=== PATIENT | female | born 1995 | race Caucasian/White ===

== ENCOUNTER 2020-08-20 08:00 | Outpatient (CLI) | payer OTHER | END 2020-08-20 23:59 | disposition home or self-care (01) | LOC: LAB.WC 08:00 | PROVIDERS: ATTEND Advanced Practice Midwife | DX: Z34.90 Encounter for supervision of normal pregnancy, unspecified, unspecified trimester (principal); Z36.85 Encounter for antenatal screening for Streptococcus B | CPT/HCPCS: 87797 ==

== ENCOUNTER 2020-08-22 16:36 | Outpatient (CLI) | payer OTHER ==
[2020-08-22] MEDS ORDERED: SODIUM CHLORIDE FLUSH 0.9% 10 ML SYRINGE IVP PRN (17:11)
[2020-08-22] MEDS ORDERED: LACTATED RINGERS 1,000 ML IV ONE (17:15)
[2020-08-22] MEDS ORDERED: LACTATED RINGERS 500 ML IV ONE ×2 (17:18→17:59)
[2020-08-22 17:38] LABS: HCT - HEMATOCRIT 31.2 % (37.0-47.0); HGB - HEMOGLOBIN 10.3 g/dL (12.0-16.0); MEAN CORPUSCULAR VOLUME 87.4 fL (81.0-99.0); RED BLOOD COUNT 3.57 10^6/uL (4.20-5.40); WHITE BLOOD COUNT 9.7 x10^3/uL (4.8-10.8)
[2020-08-22 17:39] LABS: BASOPHILS % (AUTO) 0.2 %; EOSINOPHILS # (AUTO) 0.1 10^3/uL (0.0-0.7); EOSINOPHILS % (AUTO) 0.5 %; LYMPHOCYTES % (AUTO) 20.9 %; MEAN CORPUSCULAR HEMOGLOBIN 28.9 pg (27.0-31.0); MEAN PLATELET VOLUME 9.7 fL (7.9-10.8); MONOCYTES # (AUTO) 0.8 10^3/uL (0.0-1.0); MONOCYTES % (AUTO) 8.4 %; NEUTROPHILS # (AUTO) 6.7 10^3/uL (1.5-6.6); NEUTROPHILS % (AUTO) 69.3 %; PLT - PLATELET COUNT 283 10^3/uL (130-450)
[2020-08-22 17:48] LABS: URIC ACID 3.2 mg/dL (2.6-7.2)
[2020-08-22 18:16] LABS: MUDS CUTOFF CONCENTRATIONS CUTOFF CONC BELOW:
[2020-08-22 18:17] LABS: CREATININE,URINE 50.4 mg/dL; PROTEIN/CREATININE RATIO,URINE 0.4 (<=0.2)
[2020-08-22 18:36] LABS: AMPHETAMINE SCREEN,URINE NEGATIVE (NEGATIVE); BARBITURATE SCREEN,UR NEGATIVE (NEGATIVE); BENZODIAZEPINES SCREEN, URINE NEGATIVE (NEGATIVE); COCAINE SCREEN URINE NEGATIVE (NEGATIVE); METHADONE SCREEN, URINE NEGATIVE (NEGATIVE); METHAMPHETAMINES SCREEN, URINE NEGATIVE (NEGATIVE); OPIATE SCREEN, URINE NEGATIVE (NEGATIVE); OXYCODONE SCREEN, URINE NEGATIVE (NEGATIVE); PROPOXYPHENE SCREEN, URINE NEGATIVE (NEGATIVE); THC CANNABINOID SCREEN, URINE NEGATIVE (NEGATIVE); TRICYCLIC ANTIDEPRESSANT,URINE NEGATIVE (NEGATIVE)
[2020-08-22 18:41] VITALS: BP 128/86
--- NOTE | 2020-08-22 18:49 | PROVIDER PROGRESS NOTE ---
- HPI Chief Complaint: Labor Check Current : Current EDU 09/17/20 Gestation 36 Weeks and 2 Days 2 Para 1 - Procedures OB Procedure Performed: NST Diagnosis/Indication for NST: Other Service Date of procedure: 08/22/20 - Plan Plan: S: Adri esparza a 25yo @ 36.2wks gestation by LMP c/w 12.2wks U/S who presents to [facility] with c/o her "heart feeling funny". She denies chest pain. She states she was just laying in bed watching TV and felt like she had just gone for a jog. She denies vaginal bleeding or leakage of fluid. She reports +FM. She reports occasional episodes of abdominal tightening and reports 3 in the last hour. She denies feeling significant pain associated with the contractions. She reports regular bowel movements. She denies smoking. She denies drug use including marijuana use. She states she has not had very much water to drink today and she does not usually drink much water. She has had one large coffee and 2 caffeinated sodas and no water. She states otherwise she is feeling well and denies fever, chills, fatigue, or malaise. She denies VENTURA, visual disturbances, RUQ or epigastric pain. She presents with her Dorian. O: Heart RRR w/o M/G/R, lungs CTAB, abdomen gravid, soft and nontender, bilateral LEs no edema. Moderate edema to hands bilaterally. EKG - tachycardia, otherwise WNL SVE 1/50/-3, posterior. Vertex. Initial BP 150s/80s Repeat BP 130/80; 120/80 Maternal tachycardia 150s NST performed 08/22/2020 NST read 08/22/2020 NST reactive: FHR baseline 150, moderate variability, + accels, no decels Occasional contraction appreciated via tocometry PI labs WNL UTOX consent for signed - pending 1L LR bolused. Pt feels significantly improved following fluid administration and heart decreased to 115. A: 25yo @ 36.2wks gestation by LMP c/w 12.2wk U/S Dehydration P: Strongly advised limiting caffeine intake to 1 8oz cup of coffee or soda per day. Encouraged increased fluid intake and encouraged her to drink 100oz of fluid per day. Reviewed warning s/sx and when to present. Has emergency contact information. F/u next week on Thursday in the office for routine visit or sooner PRN. Pt and partner at the bedside both verbalized understanding and agree to above plan. They deny further questions or concerns at this time. FINAL DIAGNOSIS: Maternal dehydration
== END 2020-08-22 18:58 | disposition home or self-care (01) ==
LOC: WFO 16:36 → FBP 16:38 → WFO 18:58
PROVIDERS: ATTEND Nurse Practitioner Obstetrics & Gynecology
DX: O99.283 Endocrine, nutritional and metabolic diseases complicating pregnancy, third trimester (principal); E86.0 Dehydration; Z3A.36 36 weeks gestation of pregnancy
CPT/HCPCS: 36415; 59025; 80306; 82570; 83615; 84156; 84450; 84550; 85025; 93005; 99214; J7120

== ENCOUNTER 2020-09-05 08:00 | Outpatient (CLI) | payer OTHER ==
[2020-09-05 23:39] LABS: BACTERIAL VAGINOSIS DNA NEGATIVE (NEGATIVE); CANDIDA GLABRATA DNA NEGATIVE (NEGATIVE); CANDIDA GROUP DNA NEGATIVE (NEGATIVE); CANDIDA KRUSEI DNA NEGATIVE (NEGATIVE); TRICHOMONAS VAGINALIS DNA NEGATIVE (NEGATIVE)
== END 2020-09-05 23:59 | disposition home or self-care (01) ==
LOC: LAB.WC 08:00
PROVIDERS: ATTEND Nurse Practitioner Obstetrics & Gynecology
DX: N89.8 Other specified noninflammatory disorders of vagina (principal)
CPT/HCPCS: 87661; 87801

== ENCOUNTER 2020-09-12 16:23 | Outpatient (CLI) | payer OTHER ==
[2020-09-12 17:22] VITALS: BP 127/90
[2020-09-12 17:23] LABS: RUPTURE OF MEMBRANES PLUS NEGATIVE (NEGATIVE)
--- NOTE | 2020-09-12 19:43 | PROVIDER PROGRESS NOTE ---
- HPI Chief Complaint: Leakage of vaginal fluid Current : Current EDU 09/17/20 Gestation 39 Weeks and 2 Days Vital Signs Temperature 37.2 C 09/12/20 17:10 Heart Rate 113 H 09/12/20 17:10 Respiratory Rate 18 09/12/20 17:10 Blood Pressure 127/90 H 09/12/20 17:10 Temperature 37.2 C 09/12/20 17:10 Heart Rate 113 H 09/12/20 17:10 Respiratory Rate 18 09/12/20 17:10 Blood Pressure 127/90 H 09/12/20 17:10 O2 Saturation - Procedures OB Procedure Performed: NST NST Procedure: NST Procedure Start Time 17:00 Stop Time 17:20 Service Date of procedure: 09/12/20 - Plan Plan: Adri presents today to [facility] with complaints of vaginal leakage of clear fluid x once a couple of hours ago. She denies consistent contractions and reports her contractions continue to feel mild and sporadic as they have for the past couple of weeks. She denies vaginal bleeding and she reports +FM. NST performed 09/12/2020 NST read 09/12/2020 NST reactive. FHR baseline 140s, moderate variability, + accels, no decels Contractions palpate mild intermittently. SVE closed/thick/high No evidence of gross rupture noted. ROM plus collected - NEGATIVE Assessment: 25yo @ 39.2wks gestation vaginal leakage of fluid Plan: Pt reassured with a negative ROM plus and no evidence of labor. Pt released home with precautions. She has emergency contact number. She verbalized understanding and agrees to above plan. She denies further questions or concerns at this time. FINAL DIAGNOSIS: Vaginal leakage of fluid - r/o rupture of membranes
== END 2020-09-12 17:45 | disposition home or self-care (01) ==
LOC: WFO 16:23 → FBP 16:27 → WFO 17:45
PROVIDERS: ATTEND Nurse Practitioner Obstetrics & Gynecology
DX: O99.891 Other specified diseases and conditions complicating pregnancy (principal); N89.8 Other specified noninflammatory disorders of vagina; Z3A.39 39 weeks gestation of pregnancy
CPT/HCPCS: 59025; 84112; 99213

== ENCOUNTER 2020-09-15 20:10 | Outpatient (CLI) | payer OTHER ==
[2020-09-15 21:53] VITALS: BP 130/79
--- NOTE | 2020-09-16 09:33 | PROVIDER PROGRESS NOTE ---
- HPI Chief Complaint: Labor Check Current : Current EDU 09/17/20 Gestation 39 Weeks and 5 Days 2 Para 1 Vital Signs Temperature 36.9 C 09/15/20 20:24 Heart Rate 118 H 09/15/20 20:24 Respiratory Rate 18 09/15/20 20:24 Blood Pressure 121/73 09/15/20 20:24 O2 Saturation 98 09/15/20 20:24 Temperature 36.9 C 09/15/20 21:52 Heart Rate 106 H 09/15/20 21:52 Respiratory Rate 20 09/15/20 21:52 Blood Pressure 130/79 09/15/20 21:52 O2 Saturation 99 09/15/20 21:52 - Procedures OB Procedure Performed: NST NST Procedure: NST Procedure Start Date 09/15/20 Start Time 20:22 Stop Time 20:58 Vibroacoustic Stimulation Used No Patient States Movement Yes - Plan Plan: S: Adri presents to [facility] with c/o contractions through the evening. She states they were every 3-5 minutes but she was only rating them 3/10 pain. She denies vaginal bleeding or leakage of fluid and reports +FM. She states she is very tired of being and requests induction of labor as soon as possible. She has a hx of a precipitous delivery so she is nervous about contin uing to stay and not knowing when to present. O:Vital signs WNL. NST [id number] 09/15/2020 NST read 09/16/2020 NST reactive. FHR baseline 140s, moderate variability, + accels, no decels Contractions palpate mild occasionally every 6-10 minutes lasting 30-45 seconds with soft resting tone. SVE closed/50/-3, posterior. Vertex. A: 25yo @ 39.5wks gestation False labor >37wks gestation P: Pt released home with precautions. Encouraged pt to return for elective induction on -09/17/2020 @ 0800 with the understanding that her induction of labor is elective and may be rescheduled due to staffing concerns. Pt verbalized understanding and agrees to above plan. She denies further questions or concerns at this time. FINAL DIAGNOSIS: False labor >37wks gestation
== END 2020-09-15 22:00 | disposition home or self-care (01) ==
LOC: WFO 20:10 → FBP 20:11 → WFO 22:00
PROVIDERS: ATTEND Nurse Practitioner Obstetrics & Gynecology
DX: O47.1 False labor at or after 37 completed weeks of gestation (principal); Z3A.39 39 weeks gestation of pregnancy
CPT/HCPCS: 59025; 99213

== ENCOUNTER 2020-09-17 07:57 | Inpatient (IN) | payer OTHER ==
[2020-09-17] MEDS ORDERED: OXYTOCIN/SODIUM CHLORIDE 500 ML IV PRN (09:01)
[2020-09-17] MEDS ORDERED: SODIUM CHLORIDE FLUSH 0.9% 10 ML SYRINGE IVP PRN (09:01)
[2020-09-17] MEDS ORDERED: CARBOPROST TROMETHAMINE 250 MCG/ML AMP IM PRN (09:01)
[2020-09-17] MEDS ORDERED: miSOPROStoL 200 MCG TABLET BC PRN (09:01)
[2020-09-17] MEDS ORDERED: LIDOCAINE-MPF 1% 30 ML VIAL ID PRN (09:01)
[2020-09-17] MEDS ORDERED: OXYTOCIN 10 UNIT/ML VIAL IM PRN (09:01)
[2020-09-17] MEDS ORDERED: TRANEXAMIC ACID IN NACL 1,000 MG/100 ML BAG IV PRN (09:01)
[2020-09-17] MEDS ORDERED: METHYLERGONOVINE 0.2 MG/ML VIAL IM PRN (09:01)
[2020-09-17 09:09] LABS: BASOPHILS % (AUTO) 0.3 %; EOSINOPHILS % (AUTO) 0.4 %; HCT - HEMATOCRIT 32.2 % (37.0-47.0); HGB - HEMOGLOBIN 10.3 g/dL (12.0-16.0); LYMPHOCYTES # (AUTO) 2.1 10^3/uL (1.5-3.5); LYMPHOCYTES % (AUTO) 23.5 %; MEAN CORPUSCULAR HEMOGLOBIN 28.5 pg (27.0-31.0); MEAN PLATELET VOLUME 10.3 fL (7.9-10.8); MONOCYTES # (AUTO) 0.8 10^3/uL (0.0-1.0); MONOCYTES % (AUTO) 8.4 %; NEUTROPHILS # (AUTO) 6.1 10^3/uL (1.5-6.6); NEUTROPHILS % (AUTO) 66.9 %; PLT - PLATELET COUNT 312 10^3/uL (130-450); RED BLOOD COUNT 3.62 10^6/uL (4.20-5.40); WHITE BLOOD COUNT 9.1 x10^3/uL (4.8-10.8)
[2020-09-17] MEDS: miSOPROStoL 100 MCG TABLET BC SCH ×2 (09:22→14:34)
--- NOTE | 2020-09-17 09:39 | HISTORY & PHYSICAL EXAMINATION ---
Admit History - Visit Reason Visit Reason: Other - : 2 Parity: 1 Premature: 0 Ectopic: 0 : 0 Care: positive: [facility] Risk/History: positive: None Complications This : positive: None - Mother's Labs Mother's Blood Type: positive: O Mother's RH: positive: Negative GBS: positive: Group B Step Negative Rubella Status: positive: Immune Meds/Allgy - Home Medications Home Medications: Ambulatory Orders Medication Instructions Recorded Confirmed Vit,Sixto 74/Iron/Folic 1 each PO DAILY 09/15/20 09/15/20 [ Low Iron Tablet] - Allergies Allergies/Adverse Reactions: Allergies Allergy/AdvReac Type Severity Reaction Status Date / Time No Known Drug Allergies Allergy Verified 09/15/20 20:54 Review of Systems - Constitutional Constitutional: denies: Fatigue, Fever, Chills, Malaise - Eyes Eyes: denies: Blurred vision, Spots in vision, Dipolpia - Cardiovascular Cariovascular: denies: Irregular heart rate, Palpitations, Chest pain, Edema - Respiratory Respiratory: denies: Cough, SOB at rest - Gastrointestinal Gastrointestinal: denies: Constipation, Diarrhea, Change in bowel habits - Integumentary Integumentary: denies: Rash, Pruritis - Neurological Neurological: denies: Headache Physical - Abdominal Exam Contraction Frequency (min/apart): 2-6 Contraction Intensity: positive: Mild Uterine Resting Tone: positive: Soft - Monitoring Heart Rate Baseline: 150 Strip Review: positive: Category I - Presentation Presentation: positive: Vertex - Vaginal Exam Membranes: positive: Membranes intact Dilation (in cm): 1 Effacement (%): 20 Station: positive: -3 Cervical Position: positive: Posterior - Speculum Exam Speculum Exam Performed: positive: No Plan for Labor - Plan For Labor I expect patient to be DC'd or transferred within 96 hours.: Yes Plan for Labor: HPI: Adri is a 25yo @ 40.0wks gestation by LMP c/w 12.2wk U/S who presents to [facility] for elective induction of labor. She denies vaginal bleeding or leakage of fluid. She reports occasional contractions which she states are mostly just uncomfortable rather than painful. She reports +FM. Upon arrival cervix is noted to be 1/20/-3, medium consistency, posterior and vertex with intact membranes. She is noted to contract via tocometry every 2-6 minutes with soft resting tone. FHR baseline 150, moderate variability, + accels, no decels. She is supported by her Dorian today. She has been a patient of [facility] since her transfer of care from [facility] at 28wks gestation. Her has remained uncomplicated. She will be placed in observation status on [facility] for pre-induction cervical ripening in anticipation for elective induction of labor. Dating criteria: LMP 12/12/2019 Initial ultrasound @ 12.2wks c/w LMP dating Serial exams - agree OB History: G1: 08/18/2016, @ 40.6wks; male, 3 hour labor, 7lb3oz G2: current Medications: PNV; sertraline 25mg PO daily Allergies: NKDA PMHx: no significant Surgical Hx: Tonsillectomy (1997) Social Hx: Former smoker- quit 02/2020. No ETOH or IVDA. Dorian is active [employer] [place]. 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 Family Hx: Cancer (unknown)- mother; HTN - mother course: Initial U/S: at [facility] at 12.2wks c/w LMP for final EDEN 09/17/2020 O neg Rhogam 06/28/2020 Rubella immune VZV immune Gentic testing: no performed FAS: Anterior placenta. SETH wnl. 3VC. efw 12% Glucola: 115 Flu: reports received TDAP : 06/28/2020 GBS at 36.0 weeks - negative HSV: denies self and partner Breast pump Rx : 06/28/2020 MOD: . Husb: Dorian. Baby GIRL: Lu. Desires Epidural. Didn't have time with first; - 1st baby breastfed x 4 weeks. Slow speech, son Jey is very soft spoken with softened sounding vocabulary. From ARNAUD. pp contraception: POPs PAP: 02/21/2020-nilm Physical Exam: Normocephalic, atraumatic Heart RRR w/o M/G/R Lungs CTAB Abdomen gravid, soft, nontender EFW 3300g FHR baseline 150, moderate variability, + accels, no decels Contractions palpate mild every 2-6 minutes with soft resting tone SVE 1/20/-3, posterior, medium consistency. Vertex. Membranes intact. Bilateral LE's trace edema. Mood is good. Assessment: 25yo @ 40.0wks gestation GBS neg FHR Category I Plan: Please in observation status on [facility] for pre-induction cervical ripening in anticipation for elective induction of labor. Initiate 50mcg BC misoprostol for pre-induction cervical ripening Continuous monitoring. Encouraged ambulation and position changes. Jacuzzi PRN. Nitrous oxide PRN. Epidural per maternal request. Anticipate . Pt verbalized understanding and agrees to above plan. She denies further questions or concerns at this time.
--- NOTE | 2020-09-17 14:37 | ANESTHESIA ---
Pre-Anesthesia VS, & Labs - Diagnosis active labor - Procedure labor epidural Vital Signs: Temp Pulse Resp BP Pulse Ox 37.1 C 09/17/20 09:34 Height: 5 ft 1 in Weight (kg): 83.189 kg Body Mass Index: 34.6 BMI Classification: Obese - Is Patient ?: Yes - Lab Results Current Lab Results: Laboratory Tests 09/17/20 08:40: WBC 9.1, RBC 3.62 L, Hgb 10.3 L, Hct 32.2 L, MCV 89.0, MCH 28.5, MCHC 32.0, RDW 14.0, Plt Count 312, MPV 10.3, Neut # (Auto) 6.1, Lymph # (Auto) 2.1, [place] # (Auto) 0.8, Eos # (Auto) 0.0, Baso # (Auto) 0.0, Absolute Nucleated RBC 0.00, Nucleated RBC % 0.0 09/17/20 08:40: Blood Type O NEGATIVE, Antibody Screen NEGATIVE Lab results reviewed: Yes Fish Bones: 09/17/20 08:40 Home Medications and Allergies Active Medications Carboprost Tromethamine (Carboprost Tromethamine 250 Mcg/Ml Amp) 250 mcg IM Q15M PRN PRN Reason: Step 4: Hemorrhage protocol Stop: 09/22/20 09:02 Oxytocin/Sodium Chloride (Pitocin/Sodium Chloride) 500 mls @ 999 mls/hr IV PRN PRN; Protocol PRN Reason: POST- HEMORR PREVENTION Stop: 09/22/20 09:02 Tranexamic Acid (Tranexamic 1,000 Mg/100ml-Nacl) 1,000 mg in 100 mls @ 600 mls/hr IV .ONCE PRN PRN Reason: EBL >1200mL and within 3hr Stop: 09/22/20 09:02 Lactated Ringer's (Lr) 1,000 mls @ 100 mls/hr IV .Q10H DEANNA Lidocaine HCl (Lidocaine-Mpf 1% 30 Ml Vial) 30 ml ID .ONCE PRN PRN Reason: PERINEAL REPAIR Stop: 09/22/20 09:02 Methylergonovine Maleate (Methylergonovine 0.2 Mg/Ml Vial) 0.2 mg IM .ONCE PRN PRN Reason: Step 2: Hemorrhage protocol Stop: 09/22/20 09:02 Misoprostol (Misoprostol 200 Mcg Tablet) 800 mcg BC .ONCE PRN PRN Reason: Step 3: Hemorrhage protocol Stop: 09/22/20 09:02 Misoprostol (Misoprostol 100 Mcg Tablet) 50 mcg BC Q4HR [facility] Last Admin: 09/17/20 14:34 Dose: 50 mcg Documented by: Oxytocin (Oxytocin 10 Unit/Ml Vial) 10 unit IM .ONCE PRN PRN Reason: Step one: If no IV access Stop: 09/22/20 09:02 Sodium Chloride (Sodium Chloride Flush 0.9% 10 Ml Syringe) 10 ml IVP 0100,0900,1700 DEANNA Sodium Chloride (Sodium Chloride Flush 0.9% 10 Ml Syringe) 10 ml IVP PRN PRN PRN Reason: NEEDED PER PROVIDER ORDERS Vit,Sixto 74/Iron/Folic [ Low Iron Tablet] 1 each PO DAILY 08/19 01/08 Allergies/Adverse Reactions: Allergies Allergy/AdvReac Type Severity Reaction Status Date / Time No Known Drug Allergies Allergy Verified 09/15/20 20:54 Anes History & Medical History - Anesthetic History Anesthesia Complications: reports: No previous complications Family history of Anesthesia Complications: Denies Family history of Malignant Hyperthermia: Denies - Medical History Cardiovascular: reports: None Pulmonary: reports: None Gastrointestinal: reports: None Urinary: reports: None Neuro: reports: None Musculoskeletal: reports: None Endocrine/Autoimmune: reports: None Blood Disorders: reports: None Smoking Status: Former smoker - Obstetrical History : 2 Parity: 1 Events: reports: None Complications: reports: None Exam General: Alert, Oriented x3, Cooperative, No acute distress Dental: WNL Mouth Openin Fingerbreadth Neck Mobility: Normal Plan Anesthesia Type: Epidural Consent for Procedure(s) Verified and Reviewed: Yes Code Status: Attempt Resuscitation ASA classification: 2-Mild systemic disease Is this case an emergency?: No
--- NOTE | 2020-09-17 15:51 | PROVIDER PROGRESS NOTE ---
Labor Progress Note - Uterine Monitoring Uterine Monitoring Mode: positive: External toco Contraction Frequency (min/apart): 1-4 Contraction Intensity: positive: Mild Uterine Resting Tone: positive: Soft - Monitoring Monitor Mode: positive: External ultrasound Heart Rate Baseline: 145 Heart Rate Variability: positive: Moderate (6-25 bmp) Accelerations: positive: Present, 15x15 Decelerations: positive: Variable, Intermittent (<50% x20 min) Strip Review: positive: Category I - Vaginal Exam Dilation (in cm): 2 Effacement (%): 20 Station: -3 Cervical Position: Posterior - Labor Progress Note Labor Progress Note/Additional Text: S: Feeling slight menstrual-like cramping which is more than she was before but she reports she is tolerating contractions well and is able to talk through them with ease. Her is supportive at the bedside. O: FHR baseline 145, moderate variability, + accels, occasional variable decel Contractions palpate mild every 1-5 minutes with soft resting tone SVE 2/20/-3, posterior, medium consistency. Vertex. SROM @ 1504 small amount of clear fluid. Nitrizine positive. A: 25yo @ 40.0wks gestation Elective IOL - s/p 2 doses of 50mcg BC misoprostol FHR Category I GBS neg P: Admit to [facility] secondary to SROM. Continuous monitoring. D/C misoprostol and initiate pitocin for induction of labor at 1830 secondary to SROM. Encouraged ambulation and position changes. Jacuzzi PRN. Nitrous oxide PRN. Epidural per maternal request. Anticipate .
[2020-09-17] MEDS: LACTATED RINGERS 1,000 ML IV SCH ×2 (16:23→19:55)
[2020-09-17] MEDS ORDERED: fentaNYL 100 MCG/2 ML VIAL ONE (16:53)
[2020-09-17] MEDS ORDERED: ROPIVACAINE 0.2% 200 MG/100 ML BAG EP ONE (16:54)
[2020-09-17] MEDS ORDERED: BUPIVACAINE 0.25% PF 10 ML VIAL ONE (16:54)
[2020-09-17] MEDS: OXYTOCIN/SODIUM CHLORIDE 500 ML IV SCH ×2 (17:33→18:30)
[2020-09-17] MEDS ORDERED: ONDANSETRON 4 MG/2 ML VIAL IVP PRN (17:34)
[2020-09-17] MEDS ORDERED: ePHEDrine 50 MG/ML VIAL IVP PRN (17:34)
[2020-09-17] MEDS ORDERED: NALOXONE 0.4 MG/ML VIAL IVP PRN (17:34)
[2020-09-17] MEDS ORDERED: ROPIVACAINE 0.2% 200 MG/100 ML BAG EP PRN (17:34)
[2020-09-17] MEDS ORDERED: METOCLOPRAMIDE 10 MG/2 ML VIAL IVP PRN (17:34)
[2020-09-17] MEDS ORDERED: NALBUPHINE 10 MG/ML AMP IVP PRN (17:34)
[2020-09-17] MEDS ORDERED: diphenhydrAMINE INJ 50 MG/ML VIAL IVP PRN (17:34)
[2020-09-17] MEDS: SODIUM CHLORIDE FLUSH 0.9% 10 ML SYRINGE IVP SCH (17:34)
[2020-09-17] MEDS ORDERED: TERBUTALINE 1 MG/ML VIAL SUBQ ONE ×2 (19:25→19:27)
--- NOTE | 2020-09-17 19:55 | PROVIDER PROGRESS NOTE ---
Labor Progress Note - Uterine Monitoring Uterine Monitoring Mode: positive: External toco Contraction Frequency (min/apart): 1-4 Contraction Intensity: positive: Strong Uterine Resting Tone: positive: Soft - Monitoring Monitor Mode: positive: External ultrasound Heart Rate Baseline: 160 Heart Rate Variability: positive: Moderate (6-25 bmp) Accelerations: positive: Absent Decelerations: positive: Late, Prolonged (>2x10 min) Strip Review: positive: Category II - Vaginal Exam Dilation (in cm): 4 Effacement (%): 50 Station: -3 - Labor Progress Note Labor Progress Note/Additional Text: S: Patient comfortable with epidural. Currently left side-lying position. supportive at the bedside. O: FHR baseline 160, moderate variability, no accels, prolonged late deceleration Contractions palpate firm every 1-5 minutes and during prolonged late deceleration the uterus did not relax and remained firm. Pitocin shut off. Terbutaline administered and uterus current has soft resting tone. 500cc fluid bolus and position changes improved FHR. Pitocin off currently with maximum infusion rate 1mU/mL A: 25yo @ 40.0wks gestation Active labor FHR Category II - prolonged late deceleration with reassuring heart rate at present time. GBS neg SROM x 4.5hrs P: Continuous monitoring. Will expectantly manage x 1 hour and repeat SVE. Pt verbalized understanding and agrees to above plan. She denies further questions or concerns at this time.
--- NOTE | 2020-09-18 00:48 | PROVIDER PROGRESS NOTE ---
Labor Progress Note - Uterine Monitoring Uterine Monitoring Mode: positive: External toco Contraction Frequency (min/apart): 2-3 Contraction Intensity: positive: Strong Uterine Resting Tone: positive: Soft - Monitoring Monitor Mode: positive: External ultrasound Heart Rate Baseline: 150 Heart Rate Variability: positive: Moderate (6-25 bmp) Accelerations: positive: Absent Decelerations: positive: Early, Late, Recurrent (>50% x20 min), Intermittent (<50% x20 min) Strip Review: positive: Category II - Vaginal Exam Dilation (in cm): 7 Effacement (%): 90 Station: 0 - Labor Progress Note Labor Progress Note/Additional Text: S: Pt comfortable with epidural. Her is supportive at the bedside. She is coping well and states she is accepting of a delivery in the event we feel it is needed. O: FHR baseline 150, moderate variability, no accels, recurrent early decels, intermittent late decelerations lasting 3 minutes. Contractions palpate strong with soft resting tone SVE 7/90/0, soft, vertex SROM x 9 hours A: 25yo @ 40.1wks gestation FHR Category II Active labor GBS neg P: call center support consultant physician notified and requested to present (likely delivery if heart rate deceleration occurs again) vs expeditious vaginal delivery if appropriate/pt reaches complete dilation. Hx of precipitous delivery and 10 minute second stage. Reassuring status at present time. Continuous monitoring.
[2020-09-18] MEDS ORDERED: WITCH HAZEL/GLYCERIN 1 PAD TOP PRN (01:27)
[2020-09-18] MEDS ORDERED: HYDROCORTISONE 1% CREAM 28 GM TUBE PR PRN (01:27)
--- NOTE | 2020-09-18 02:10 | DELIVERY NOTE ---
Delivery Note - Labor Labor: positive: Augmented by oxytocin - Delivery Method Delivery Method: positive: Spontaneous vaginal delivery - Cervical Ripening Method Cervical Ripening Method: positive: Misoprostil - Presentation Presentation: positive: Vertex, [place] - left occiput anterior - Nuchal Cord Nuchal Cord: positive: Present, Reduced - Amniotic Fluid Description Amniotic Fluid Description: positive: Clear - Episiotomy Type Episiotomy Type: positive: None - Laceration Laceration: positive: 1st degree, Labial, Vaginal - Suture Suture Type: positive: Vicryl Suture Size: positive: 2-0, 4-0 - Delivery Outcome Delivery Outcome: positive: Livebirth - [place]: positive: Placed in direct skin contact with mother, Stimulated, Warmed, [place] used [place] sex: positive: Female - Cord Cord: positive: 3 vessels - Placenta Placenta: positive: Intact, Spontaneous - Estimated Blood Loss Estimated Blood Loss (in cc): 350 - Post Delivery Events Post Delivery Events: positive: No post delivery events - Delivery Comments (Free Text/Narrative) Delivery Comments (Free Text/Narrative): Labor: This is a 25yo @ 40.1wks gestation who presented to [facility] on 09/17/2020 for elective induction of labor. Cervix was 1/20/-3, posterior, and vertex. She was given 2 doses of 50mcg BC misoprostol for cervical ripening. SROM occurred at 1504 and was noted to be a small amount of clear fluid. Epidural placed per maternal request. Pitocin was initiated for induction of labor with a maximum infusion rate of 1mU/mL and was discontinued secondary to late deceleration. Pt received terbutaline x once at time of late deceleration secondary to prolonged uterine contractions. FHR pattern demonstrated Category II pattern throughout much of labor with moderate variability maintained. heavy equipment sales manager physician present on the floor at time of delivery per my request. Pt progressed to c/c/+1 @ 0055 with onset of pushing at 0056. : Normal of viable female on 09/18/2020 @ 0103. Nuchal cord x 1 was reduced. The was placed on maternal abdomen, stimulated, dried, and placed skin to skin. Apgars were 7/9 at 1 and 5 minutes respectively. Pitocin administered via IV for hemostasis. The umbilical cord was allowed to stop pulsating at which time it was doubly clamped by CNM and cut by FOB. Cord blood was obtained. 3VC. Fundal massage and gentle cord traction applied for active management of the third stage. Placenta delivered spontaneously and intact at 0106. EBL 350mL. Fourth stage: Uterine fundus firm and there is no excessive bleeding. The perineum, vagina, and cervix were inspected and noted to have a 1st degree vaginal laceration which was repaired using a 2-[address]-1 needle and a superficial right labial laceration which was repaired using a 4-0 vicryl on an SH needle in standard fashion and under sterile conditions. Vaginal examination following repair was done. Tissues well approximated. initiated. Family bonding well. Both mother and baby were left in stable condition.
[2020-09-18] MEDS: IBUPROFEN 800 MG TABLET PO SCH ×4 (02:15→23:24)
[2020-09-18] MEDS: ACETAMINOPHEN 500 MG TABLET PO SCH ×4 (03:24→21:06)
[2020-09-18] MEDS: DOCUSATE SODIUM 100 MG CAPSULE PO SCH ×2 (08:20→23:24)
--- NOTE | 2020-09-18 11:08 | PROVIDER PROGRESS NOTE ---
Subjective - Subjective Subjective: S: Bonding well with baby. Bleeding decreased and is light. Pain well controlled with oral medications however she has more cramping with nursing than she remembers the first time around. She states she is trying to remember how to breastfeed and it is "coming back to me". Her is supportive at the bedside. O: BP 134/88, T 36.7, HR 87, RR 18 Heart RRR w/o M/G/R, lungs CTAB, abdomen soft and nontender with fundus firm at U-2, perineum intact, repair with mild edema, light lochia rubra, bilateral LE's trace edema. A: 25yo -->P1 day of delivery s/p TSVD viable female infant 1st degree perineal laceration -intact P: Continue routine pp care and medications. Special attention to today. Evaluate for discharge home tomorrow. Pt verbalized understanding and agrees to above plan. She denies further questions or concerns at this time. Objective - Vital Signs/Intake & Output Vital Signs: Vital Signs x48h Temp Pulse Resp BP Pulse Ox 09/18/20 08:34 36.7 C 87 18 134/88 H 99 Intake & Output: Intake & Output 09/15/20 09/16/20 09/17/20 09/18/20 23:59 23:59 23:59 23:59 Intake Total 1679.167 798.333 Output Total 175 400 Balance 1504.167 398.333 - Lab Results Fish Bones: 09/17/20 08:40
[2020-09-18] MEDS: LACTATED RINGERS 1,000 ML IV SCH ×2 (18:44→18:45)
[2020-09-18] MEDS: SODIUM CHLORIDE FLUSH 0.9% 10 ML SYRINGE IVP SCH ×2 (18:44→18:45)
[2020-09-19 08:01] VITALS: BP 125/83
[2020-09-19] MEDS: IBUPROFEN 800 MG TABLET PO SCH (08:14)
[2020-09-19] MEDS: DOCUSATE SODIUM 100 MG CAPSULE PO SCH (08:14)
[2020-09-19] MEDS: ACETAMINOPHEN 500 MG TABLET PO SCH (08:15)
--- NOTE | 2020-09-19 08:15 | PROVIDER PROGRESS NOTE ---
Subjective - Subjective Subjective: FINAL PROGRESS NOTE: S: Bonding well with baby. without difficulty. Bleeding decreased and is light. Pain is well controlled with oral medications. She is urinating without difficulty and she is ambulating and tolerating a regular diet. Her Dorian is supportive at the bedside. They desire to be discharged home today. O: Bp 125/83, T 37.0, HR 87, RR 16 Heart RRR w/o M/G/R, lungs CTAB, abdomen soft and nontender with fundus firm at U-2, perineum intact, light lochia rubra, bilateral LE's trace edema. A: 25yo -->P2 PPD #1 s/p TSVD viable female infant Normal recovery P: Reviewed pp self care and warning s/sx and when to present. Encouraged continuation of PNV while . Continue taking ibuprofen and tylenol OTC as needed for pain management. Pt has emergency contact number. F/u with myself at [facility] in 1 week or sooner PRN. Pt verbalized understanding and agrees to above plan. She denies further quest ions or concerns at this time. Objective - Vital Signs/Intake & Output Vital Signs: Vital Signs x48h Temp Pulse Resp BP Pulse Ox 09/19/20 08:00 37.0 C 87 16 125/83 H 97 Intake & Output: Intake & Output 09/16/20 09/17/20 09/18/20 09/19/20 23:59 23:59 23:59 23:59 Intake Total 1679.167 798.333 Output Total 175 400 Balance 1504.167 398.333 - Lab Results Fish Bones: 09/17/20 08:40
--- NOTE | 2020-09-19 08:34 | Discharge Plan ---
Discharge Plan Problem Reviewed?: Yes Disposition: Home, Self Care Condition: Good Diet: Regular Activity Restrictions: No Restrictions Shower Restrictions: No Driving Restrictions: No Weight Bearing: Full Weight No Smoking: If you smoke, Please STOP! Call for help. Follow-up with: Sirena Peters CNM, ARNP [Provider Admit Priv/Credential] -
--- NOTE | 2020-09-19 08:42 | DISCHARGE SUMMARY ---
Discharge Summary Condition at Discharge: Good Discharge Disposition: 01 Home, Self Care - HOSPITAL COURSE Hospital Course: Date of Admission: 09/17/2020 Date of Discharge: 09/19/2020 Diagnosis on Admission: 1. 25yo @ 40.0wks gestation 2. Elective IOL 3. GBS neg Diagnosis on Discharge: 1. 25yo s/p on 09/18/2020 2. 3. Normal recovery Brief History: She is a patient of [facility] who presented on 09/17/2020 for elective induction of labor. Upon arrival cervix was noted to be 20/-3, posterior and vertex. She was given 2 total doses of 50mcg BC misoprostol for pre-induction cervical ripening. SROM occurred and was noted to be a moderate amount of clear fluid. Pitocin was initiated for labor augmentation for a maximum infusion rate of 1mU/mL. FHR demonstrated Category II pattern throughout active labor. She progressed to delivery a viable female on 09/18/2020 @ 0103. Nuchal cord x 1 was reduced. Apgars were 7 and 9 at 1 and 5 minutes respectively. EBL 350mL. The perineum, vagina, and cervix were inspected and noted to have a 1st degree vaginal laceration and a superficial right labial laceration which were repaired in standard fashion and under sterile conditions. She has been doing well in her course. She is ambulating and tolerating a regular diet. She is urinating without difficulty and her lochia is normal. Her pain is well controlled with oral medications. She will be discharged home today on day #1 with instructions to continue taking her vitamin while and to continue taking ibuprofen and tylenol over the counter as needed for pain management. She intends to follow up with myself at [facility] in 1 week for routine visit or sooner if needed. She has been given precautions to call if she has any worsening fevers, chills, abdominal pain, increased bleeding, or foul smelling vaginal lochia. - ALLERGIES Allergies/Adverse Reactions: Allergies Allergy/AdvReac Type Severity Reaction Status Date / Time No Known Drug Allergies Allergy Verified 09/15/20 20:54 - MEDICATIONS Home Medications: Ambulatory Orders Medication Instructions Recorded Confirmed Vit,Sixto 74/Iron/Folic 1 each PO DAILY 09/15/20 09/15/20 [ Low Iron Tablet] - LABS Result Diagrams: 09/17/20 08:40
--- NOTE | 2020-09-19 12:30 | Labor Flowsheet ---
Labor Flowsheet Datetime Report Generated by CPN: 09/19/2020 12:30 Datetime: 09/19/2020 07:50 VITAL SIGNS NBP Sys/Lilli/Mean (mmHg): 125 : 83 : 92 Pulse: 92 Datetime: 09/18/2020 03:12 PAIN Pain Scale: 2 Pain Presence: Intermittent Pain Type: Cramping Pain Location: Abdomen Pain Relief Measures: Pain Medication Given; Comfort Measures Datetime: 09/18/2020 01:31 Respirations: 19 Temperature (C): 37.0 Temperature Route: Oral Datetime: 09/18/2020 01:17 Stage of : Recovery Datetime: 09/18/2020 01:16 LaborFlag: Labor Datetime: 09/18/2020:09 Stage 2 Comments: repair in progress Datetime: 09/18/2020 01:03 UTERINE ACTIVITY Monitor Mode: External Frequency (min): 2-3 Quality: Strong Duration (sec): 60-100 Pattern: Normal: <= 5 Contractions in 10 Minutes Resting Tone (Palpate): Relaxed ASSESSMENT A Monitor Mode: Telemetry FHR Baseline Rate : 150 Variability: Moderate 6-25 bpm Accelerations: 15X15 Decelerations: Late; Variable; Prolonged Actions for Decelerations: Provider Notified Category: Category II Datetime: 09/18/2020 00:59 I/O Interventions: Reyes Discontinued Patient Care Comments: tip intact, 200cc urine Datetime: 09/18/2020 00:56 STAGE 2 Pushing Position: Pushing with Contractions; Pushing Lithotomy Pushing Progress: Descent with Pushing Datetime: 09/18/2020 00:55 VAGINAL EXAM Dilatation (cm): 10.0 Effacement (%): 100 Station: 2 Exam by: Lorraine CNM COMMUNICATION Communication: Provider at Bedside Provider Notified (Name): A Lorraine CNM Communication Comments: CNM called to bedsided Datetime: 09/18/2020 00:51 Pain Coping: Breathing Through Contractions Comfort Measures: Family Support Datetime: 09/18/2020 00:50 Patient Position/Activity: Left Tilt; Semi-Fowlers Datetime: 09/18/2020 00:35 Monitor Interventions for UA: [place] Adjusted Datetime: 09/18/2020 00:28 Hygiene: Rekha Care; Underpad Changed Datetime: 09/18/2020 00:21 Provider Reviewed Strip: Yes Datetime: 09/17/2020 22:52 Monitor Interventions for FHR: Ultrasound Adjusted Datetime: 09/17/2020 22:08 Vaginal Exam Comments: SVE unchanged Datetime: 09/17/2020 21:46 Vital Sign Comments: pt laying on BP cuff with arm bent, will retake on L arm Datetime: 09/17/2020 21:15 SpO2 (%): 100 Datetime: 09/17/2020 21:10 Membrane Status: Ruptured Membranes Rupture Method: Artificial Amniotic Fluid Color: Bloody Amniotic Fluid Amount: Moderate Amniotic Fluid Odor: None Membrane Comments: CNM AROMs forebag after obtaining informed consent Datetime: 09/17/2020 21:09 Vaginal Bleeding: Small Datetime: 09/17/2020 20:51 Pain Assessment Comments: reports occasional ache in R hip, repositioned slightly, scheduled bolus from pump infusing now, denies needs Anesthesia Level Check: T10- Umbilicus Datetime: 09/17/2020 20:30 FHR Baseline Changes: Return to Previous Baseline Datetime: 09/17/2020 20:14 MATERNAL ASSESSMENT Level of Consciousness: Alert DTR's/Clonus: DTRs 2+; No Clonus Headache: Denies Breath Sounds, Left: Clear and Equal Breath Sounds, Right: Clear and Equal Nausea/Vomiting: Denies RUQ Epigastric Pain: Denies Plan of Care: Plan of Care Discussed Unit Routine: Call German; Monitoring; Safety/Fall Risk Prevention; Diet/Nutrition Services Pain Management: Epidural Datetime: 09/17/2020 19:42 Contraction Comments: abdomen palpates soft, toco referenced Datetime: 09/17/2020 19:30 Tocolytics: Terbutaline 0.25mg Subcutaneous Datetime: 09/17/2020 19:22 MEDICATIONS Pitocin (milliunits): Discontinued Datetime: 09/17/2020 19:15 TEACHING Instructional Method: Verbal; Patient Instructed; Family/Support Person Instructed; Verbalized Unde rstanding Labor/Induction: Tachysystole Interventions; Interventions Datetime: 09/17/2020 19:00 Oxygen Method: Room Air Datetime: 09/17/2020 17:23 Epidural Procedure Other: Pump Started Datetime: 09/17/2020 17:17 Epidural Procedure: Loading Dose Datetime: 09/17/2020 17:15 Comments: Poor tracing during epidural placement Datetime: 09/17/2020 17:12 Anesthesia Comments: Negative test dose Datetime: 09/17/2020 17:01 PROCEDURE TIME OUT Procedure Verify: Correct Patient Identity; Accurate Procedure Consent Form; Agreement on Procedure to be Done; Correct Patient Position ANESTHESIA Anesthesia Plans: Epidural Epidural Positioning: Sitting Datetime: 09/17/2020 16:53 PATIENT CARE IV/Blood Work: IV Bolus Given ml @ 500; IV Infusing per Order Datetime: 09/17/2020 15:42 Cervix, Consistency: Moderate Datetime: 09/17/2020 15:04 Nitrazine: Positive Datetime: 09/17/2020 14:34 Cervical Ripening Agents: Cytotec @ Datetime: 09/17/2020 13:22 Pain Goal: 9
== END 2020-09-19 10:35 | disposition home or self-care (01) | DRG 807 ==
LOC: WFO 07:57 → FBP 08:02 → WFO 09:00 → FBP 09:01 → OBSVTOIN 15:14
PROVIDERS: ADMIT Nurse Practitioner Obstetrics & Gynecology; ATTEND Nurse Practitioner Obstetrics & Gynecology
PROC: 0HQ9XZZ Repair Perineum Skin, External Approach (ICD-10-PCS; principal; 2020-09-18)
PROC: 10E0XZZ Delivery of Products of Conception, External Approach (ICD-10-PCS; 2020-09-18)
DX: O70.0 First degree perineal laceration during delivery (principal); Z37.0 Single live birth; O69.81X0 Labor and delivery complicated by cord around neck, without compression, not applicable or unspecified; Z3A.40 40 weeks gestation of pregnancy
CPT/HCPCS: 36415; 85025; 86850; 86900; 86901; A9270; G0378; J7120

== ENCOUNTER 2020-11-12 11:38 | Emergency (ER) | payer OTHER ==
[2020-11-12 12:18] LABS: BILIRUBIN,URINE NEGATIVE (NEGATIVE); GLUCOSE, URINE (UA) NEGATIVE (NEGATIVE); KETONES,URINE (UA) NEGATIVE (NEGATIVE); LEUKOCYTE ESTERASE, URINE SMALL (NEGATIVE); NITRITE,URINE NEGATIVE (NEGATIVE); OCCULT BLOOD,URINE LARGE (NEGATIVE); PROTEIN,URINE 100 mg/dL (NEGATIVE); UROBILINOGEN,URINE 0.2 (NORMAL) E.U./dL (NORMAL)
[2020-11-12 12:37] LABS: CLARITY,URINE HAZY (CLEAR)
[2020-11-12 12:38] LABS: HCG UR QUAL NEGATIVE
[2020-11-12 12:41] LABS: BACTERIA,URINE Few /HPF (None Seen); SQUAMOUS EPITHELIAL CELL,UR MANY Squamous (<= Few)
--- NOTE | 2020-11-12 13:32 | ED Physician Documentation ---
History of Present Illness - Stated complaint Stated Complaint: FEMALE , BACK PX, HIP PX - Chief complaint Chief Complaint: Abd Pain - History obtained from History obtained from: Patient - Additonal information Additional information: Patient comes emergency department chief complaint of low back pain that started a couple of days ago. She thought she had just slept wrong but it seemed to be getting a little worse. It is located in her right lumbar area. No spinal pain. No sciatica. No fevers or chills. Patient has been a slight bit nauseated and has had a little discomfort with urination but no frequency. She is 2 months . No other complaints at this time. Review of Systems Ten Systems: 10 systems reviewed and negative Constitutional: reports: Reviewed and negative Eyes: reports: Reviewed and negative Ears: reports: Reviewed and negative Nose: reports: Reviewed and negative Throat: reports: Reviewed and negative Cardiac: reports: Reviewed and negative Respiratory: reports: Reviewed and negative GI: reports: Reviewed and negative : reports: Dysuria Skin: reports: Reviewed and negative Musculoskeletal: reports: Back pain Neurologic: reports: Reviewed and negative Psychiatric: reports: Reviewed and negative Endocrine: reports: Reviewed and negative Immunocompromised: reports: Reviewed and negative PD PAST MEDICAL HISTORY - Past Medical History Cardiovascular: None Respiratory: None Neuro: None Endocrine/Autoimmune: None GI: None : None Musculoskeletal: None - Present Medications Home Medications: Ambulatory Orders Medication Instructions Recorded Confirmed Vit,Sixto 74/Iron/Folic 1 each PO DAILY 09/15/20 09/15/20 [ Low Iron Tablet] Ibuprofen [Motrin] 1 tablet PO Q8H PRN #30 tablet 11/12/20 - Allergies Allergies/Adverse Reactions: Allergies Allergy/AdvReac Type Severity Reaction Status Date / Time No Known Drug Allergies Allergy Verified 11/12/20 11:51 - Social History Smoking Status: Former smoker PD ED PE NORMAL - Vitals Vital signs reviewed: Yes - General General: Alert and oriented X 3, No acute distress, Well developed/nourished - HEENT HEENT: Atraumatic, PERRL, EOMI, Moist mucous membranes - Neck Neck: Supple, no meningeal sign - Cardiac Cardiac: RRR, No murmur - Respiratory Respiratory: No respiratory distress, Clear bilaterally - Abdomen Abdomen: Soft, Non tender, Non distended - Back Back: No CVA TTP, No spinal TTP, Other (Mild tenderness palpation over right lumbar paraspinal musculature.) - Derm Derm: Normal color, Warm and dry, No rash - Extremities Extremities: No deformity, No edema - Neuro Neuro: Alert and oriented X 3 - Psych Psych: Normal mood, Normal affect Results - Vitals Vitals: Vital Signs - 24 hr 11/12/20 11:46 Temperature 36.6 C Heart Rate 92 Respiratory 16 Rate Blood Pressure 120/71 O2 Saturation 98 Oxygen O2 Source Room air - Labs Labs: Laboratory Tests 11/12/20 11:52 Urine Color YELLOW Urine Clarity HAZY Urine pH 5.0 Ur Specific [place] >=1.030 H Urine Protein 100 H Urine Glucose (UA) NEGATIVE Urine Ketones NEGATIVE Urine Occult Blood LARGE H Urine Nitrite NEGATIVE Urine Bilirubin NEGATIVE Urine Urobilinogen 0.2 (NORMAL) Ur Leukocyte Esterase SMALL H Urine RBC 6-10 H Urine WBC 11-25 H Ur Squamous Epith Cells MANY Squamous H Urine Bacteria Few Ur Microscopic Review INDICATED Urine Culture Comments NOT INDICATED Urine HCG, Qual NEGATIVE PD MEDICAL DECISION MAKING - ED course Complexity details: reviewed results, re-evaluated patient, considered differential, d/w patient ED course: The patient's urinalysis was somewhat positive, but also contaminated. I discussed with the patient that at this point in time, she has tenderness over the area of pain and also has noticed that she has some worsening of the pain with certain movements. This does to some degree indicate a musculoskeletal source of pain. However, with the dysuria and nausea, I am still concerned for urinary tract infection but think we should hold off on antibiotics till the culture comes back. I discussed with the patient that as soon as we have the culture results back, we will let her know she has an infection and will call in antibiotics for her. Patient is agreeable to this plan. She is breast-feeding and we have discussed that she can take ibuprofen and Tylenol at home and use ice and heat to help with her symptoms. Departure - Departure Disposition: 01 Home, Self Care Clinical Impression: Back pain Qualifiers: Back pain location: low back pain Chronicity: acute Back pain laterality: right Sciatica presence: without sciatica Qualified Code(s): M54.5 - Low back pain Condition: Stable Instructions: ED Neck Back Pain General Prescriptions: Ibuprofen [Motrin] 1 tablet PO Q8H PRN #30 tablet PRN Reason: PAIN &/OR FEVER Comments: Your urinalysis is somewhat positive, but appears to be contaminated with material from the outside, so it is not clear if you have a true urinary tract infection or not. Because of this, we will hold off on starting any antibiotics until we have your culture results back which should be tomorrow. If this indicates infection, we will call you at home and call in a prescription for antibiotics for you. In the meantime, you may use ice and heat to help with your back pain, as well as stretching the area. Since you are breast-feeding, you should stick to ibuprofen and Tylenol to help with your pain.
[2020-11-12 13:40] VITALS: BP 121/90
== END 2020-11-12 13:48 | disposition home or self-care (01) ==
LOC: ED 11:38
DX: M54.5 Low back pain (principal); R30.0 Dysuria; R11.0 Nausea; Z87.891 Personal history of nicotine dependence
CPT/HCPCS: 81001; 81003; 81025; 87086; 99283; 99284

== ENCOUNTER 2022-06-11 08:00 | Outpatient (CLI) | payer OTHER ==
[2022-06-11 15:49] LABS: BILIRUBIN,URINE NEGATIVE (NEGATIVE); GLUCOSE, URINE (UA) NEGATIVE (NEGATIVE); KETONES,URINE (UA) 15 mg/dL (NEGATIVE); LEUKOCYTE ESTERASE, URINE TRACE (NEGATIVE); NITRITE,URINE NEGATIVE (NEGATIVE); OCCULT BLOOD,URINE NEGATIVE (NEGATIVE); PROTEIN,URINE NEGATIVE (NEGATIVE); UROBILINOGEN,URINE 0.2 (NORMAL) E.U./dL (NORMAL)
[2022-06-11 15:51] LABS: CLARITY,URINE HAZY (CLEAR)
[2022-06-11 16:04] LABS: BACTERIA,URINE Few /HPF (None Seen); RBC,URINE 0-5 /HPF (0-5); SQUAMOUS EPITHELIAL CELL,UR MOD Squamous (<= Few)
== END 2022-06-11 23:59 | disposition home or self-care (01) ==
LOC: LAB 08:00
PROVIDERS: ATTEND Obstetrics & Gynecology
DX: Z32.01 Encounter for pregnancy test, result positive (principal)
CPT/HCPCS: 81001; 87086

== ENCOUNTER 2022-07-08 09:29 | Outpatient (CLI) | payer OTHER ==
--- NOTE | 2022-07-08 16:58 | Ultrasound Report ---
PROCEDURE: OB 14+ Weeks INDICATIONS: POSITIVE TEST OUTSIDE/PRIOR DATING DATA: Last menstrual period (LMP): 04/14/2022. LMP-based estimated date of delivery (EDEN): 01/19/2023. First dating scan (date and location): 07/08/2022. Estimated date of delivery (EDEN) from first dating scan: 12/25/2022. TECHNIQUE: Real-time scanning was performed of the fetus, with image documentation and biometric measurements. Endovaginal scanning: No COMPARISON: None. FINDINGS: General: A single living intrauterine gestation is present. Presentation: Variable Placenta: Placental position is fundal, without previa. Amniotic fluid index: 23.6 cm, heart rate: 158 beats per minute. Maternal cervical canal: 3.2 cm long; normal length is 2.5 cm or more. biometrics: Biparietal diameter: 32 mm; 15 weeks 6 days Head circumference: 108 mm; 15 weeks 1 day Abdominal circumference: 105 mm; 16 weeks 3 days Femur length: 180 mm; 15 weeks 2 days Estimated gestational age from initial scan: 15 weeks 5 days Composite gestational age from present scan: 15 weeks 5 days Estimated weight and percentile: 136 g, greater than 99.5 th percentile for gestational age Measurement variability for biometric dating: +/- 10 days from 12-20 weeks gestation, +/- 2 weeks fro m 20-30 weeks gestation, +/- 3 weeks for 30 weeks gestation or later. IMPRESSION: 1. Single living intrauterine gestation. 2. Estimated gestational age of 15 weeks 5 days is discordant with dating by last menstrual per iod. Clinical correlation recommended. 3. weight is greater than the 99th percentile for gestational age. Clinical correlation recomme nded. Reviewed by: Shanice Eisenberg MD on 07/08/2022 4:56 PM PDT Approved by: Shanice Eisenberg MD on 07/08/2022 4:56 PM PDT Station ID: [id number]
== END 2022-07-08 09:30 | disposition home or self-care (01) ==
LOC: DI 09:29
PROVIDERS: ATTEND Obstetrics & Gynecology
DX: Z32.01 Encounter for pregnancy test, result positive (principal)

== ENCOUNTER 2022-07-09 08:00 | Outpatient (CLI) | payer OTHER ==
[2022-07-10 00:02] LABS: CHLAMYDIA TRACHOMATIS DNA NEGATIVE (NEGATIVE)
[2022-07-10 00:03] LABS: NEISSERIA GONORRHOEAE DNA NEGATIVE (NEGATIVE); TRICHOMONAS VAGINALIS DNA NEGATIVE (NEGATIVE)
== END 2022-07-09 23:59 | disposition home or self-care (01) ==
LOC: LAB.WC 08:00
PROVIDERS: ATTEND Obstetrics & Gynecology
DX: Z34.90 Encounter for supervision of normal pregnancy, unspecified, unspecified trimester (principal)
CPT/HCPCS: 87491; 87591; 87661

== ENCOUNTER 2022-07-16 09:09 | Outpatient (CLI) | payer OTHER ==
[2022-07-16 09:35] LABS: BASOPHILS % (AUTO) 0.5 %; EOSINOPHILS # (AUTO) 0.1 10^3/uL (0.0-0.7); EOSINOPHILS % (AUTO) 0.7 %; HCT - HEMATOCRIT 36.9 % (37.0-47.0); HGB - HEMOGLOBIN 12.4 g/dL (12.0-16.0); LYMPHOCYTES # (AUTO) 2.5 10^3/uL (1.5-3.5); LYMPHOCYTES % (AUTO) 28.5 %; MEAN CORPUSCULAR HGB CONC 33.6 g/dL (32.0-36.0); MEAN CORPUSCULAR VOLUME 89.1 fL (81.0-99.0); MEAN PLATELET VOLUME 9.2 fL (7.9-10.8); MONOCYTES # (AUTO) 0.5 10^3/uL (0.0-1.0); MONOCYTES % (AUTO) 5.4 %; NEUTROPHILS # (AUTO) 5.6 10^3/uL (1.5-6.6); NEUTROPHILS % (AUTO) 64.7 %; PLT - PLATELET COUNT 271 10^3/uL (130-450); RED BLOOD COUNT 4.14 10^6/uL (4.20-5.40); RED CELL DISTRIBUTION WIDTH 13.4 % (12.0-15.0); WHITE BLOOD COUNT 8.7 x10^3/uL (4.8-10.8)
[2022-07-17 07:10] LABS: RPR Non Reactive (Non Reactive)
[2022-07-17 08:10] LABS: HBsAG SCREEN Negative (Negative)
[2022-07-17 09:09] LABS: HCV AB Non Reactive (Non Reactive); HIV SCREEN 4TH GENERATION Non Reactive (Non Reactive)
[2022-07-17 11:10] LABS: VARICELLA-ZOSTER AB IGG 249 index (Immune >165)
[2022-07-18 19:07] LABS: AFP MOM 0.72 (.); AFP VALUE 26.6 ng/mL (.); DIA MOM 2.69 (.); DSR (BY AGE) 1 IN 827 (.); DSR (SECOND TRIMESTER) 1 IN 1673 (.); HCG MOM 0.43 (.); HCG VALUE 19837 mIU/mL (.); INSULIN DEP DIABETES No (.); MATERNAL AGE AT EDD 28.4 yr (.); MULTIPLE GESTATION No (.); OPEN SPINA BIFIDA RISK 1 IN 10000 (.); RACE Caucasian (.); RESULTS Report (.); TEST RESULTS *Screen Negative* (.); TRISOMY 18 RISK Not increased (.); UE3 MOM 1.27 (.); UE3 VALUE 1.23 ng/mL (.); WEIGHT 136 lbs (.)
== END 2022-07-16 09:10 | disposition home or self-care (01) ==
LOC: LAB 09:09
PROVIDERS: ATTEND Obstetrics & Gynecology
DX: Z34.00 Encounter for supervision of normal first pregnancy, unspecified trimester (principal); Z36.89 Encounter for other specified antenatal screening
CPT/HCPCS: 36415; 81511; 85025; 86592; 86762; 86787; 86803; 86850; 86900; 86901; 87340; 87389

== ENCOUNTER 2022-08-11 13:40 | Outpatient (CLI) | payer OTHER ==
--- NOTE | 2022-08-12 17:26 | Ultrasound Report ---
PROCEDURE: OB Detailed Eval INDICATIONS: SUPERVISION OF OUTSIDE/PRIOR DATING DATA: Last menstrual period (LMP): 04/14/2022. LMP-based estimated date of delivery (EDEN): 01/19/2023. First dating scan (date and location): 07/08/2022. Estimated date of delivery (EDEN) from first dating scan: 12/25/2022. The below data below was generated using the ultrasound EDEN of 12/25/2022 TECHNIQUE: Real-time scanning was performed of the fetus, with image documentation and biometric measurements. COMPARISON: OB ultrasound 07/08/2022 FINDINGS: General: A single living intrauterine gestation is present. Presentation: Very Placenta: Placental position is anterior, without previa. Amniotic fluid index: 14.1 cm, within normal limits for gestational age. heart rate: 152 beats per minute. Maternal cervical canal: 5.0 cm long; normal length is 2.5 cm or more. biometrics: Biparietal diameter: 4.5 cm 20 weeks 3 days Head circumference: 16.8 cm 20 weeks 3 days Abdominal circumference: 15.1 cm 20 weeks 2 days Femur length: 3.2 cm 19 weeks 6 days Estimated gestational age from initial scan: 20 weeks 4 days Composite gestational age from present scan: 19 weeks 5 days Estimated weight and percentile: 328 g, 19th percentile Measurement variability in biometric dating: +/- 10 days from 12-20 weeks gestation, +/- 2 weeks from 20-30 weeks gestation, +/- 3 weeks at 30 weeks gestation or later. Anatomic survey: Neuro: Ventricles are normal at less than 10 mm. Cisterna magna is normal at 3-11 mm. Cerebellum i s normal in size and morphology. Nuchal skin fold: Normal at less than 6 mm between 14 and 20 weeks gestational age. Face: Nose and lips, facial profile are normal. Spine: No evidence for spina bifida. Heart: 4-chambered heart is present, with normal ventricular outflow tracts. Diaphragm: Diaphragm is intact. Stomach: Left-sided stomach is present. Kidneys: No hydronephrosis. Normal is less than 5 mm in 2nd trimester, less than 7 mm in 3rd trimester. Cord: 3 vessel cord has orthotopic insertion. Bladder: Normal in size. Extremities: All 4 extremities are visualized. IMPRESSION: Single live intrauterine with ultrasound gestational age today of 19 weeks 5 days. Anatomy is within normal limits. Reviewed by: Diana Weber MD on 08/12/2022 5:24 PM PDT Approved by: Diana Weber MD on 08/12/2022 5:24 PM PDT Station ID: [id number]
== END 2022-08-11 13:41 | disposition home or self-care (01) ==
LOC: DI 13:40
PROVIDERS: ATTEND Obstetrics & Gynecology
DX: Z34.02 Encounter for supervision of normal first pregnancy, second trimester (principal)

== ENCOUNTER 2022-09-25 09:12 | Outpatient (CLI) | payer OTHER ==
[2022-09-25 10:33] LABS: HCT - HEMATOCRIT 33.5 % (37.0-47.0); HGB - HEMOGLOBIN 11.1 g/dL (12.0-16.0); MEAN CORPUSCULAR HEMOGLOBIN 30.2 pg (27.0-31.0); MEAN CORPUSCULAR HGB CONC 33.1 g/dL (32.0-36.0); MEAN CORPUSCULAR VOLUME 91.3 fL (81.0-99.0); MEAN PLATELET VOLUME 9.5 fL (7.9-10.8); RED BLOOD COUNT 3.67 10^6/uL (4.20-5.40); RED CELL DISTRIBUTION WIDTH 13.1 % (12.0-15.0); WHITE BLOOD COUNT 10.6 x10^3/uL (4.8-10.8)
== END 2022-09-25 09:13 | disposition home or self-care (01) ==
LOC: LAB 09:12
PROVIDERS: ATTEND Obstetrics & Gynecology
DX: Z34.90 Encounter for supervision of normal pregnancy, unspecified, unspecified trimester (principal); Z67.91 Unspecified blood type, Rh negative
CPT/HCPCS: 36415; 82950; 85027; 86850

== ENCOUNTER 2022-11-12 08:00 | Outpatient (CLI) | payer OTHER ==
[2022-11-12 20:37] LABS: BACTERIAL VAGINOSIS DNA POSITIVE (NEGATIVE); CANDIDA GLABRATA DNA NEGATIVE (NEGATIVE); CANDIDA GROUP DNA NEGATIVE (NEGATIVE); CANDIDA KRUSEI DNA NEGATIVE (NEGATIVE); TRICHOMONAS VAGINALIS DNA NEGATIVE (NEGATIVE)
[2022-11-12 22:01] LABS: CHLAMYDIA TRACHOMATIS DNA NEGATIVE (NEGATIVE); NEISSERIA GONORRHOEAE DNA NEGATIVE (NEGATIVE)
== END 2022-11-12 23:59 | disposition home or self-care (01) ==
LOC: LAB.WC 08:00
PROVIDERS: ATTEND Nurse Practitioner
DX: O99.891 Other specified diseases and conditions complicating pregnancy (principal); N89.8 Other specified noninflammatory disorders of vagina
CPT/HCPCS: 81514; 87491; 87591; 87661

== ENCOUNTER 2022-11-26 08:00 | Outpatient (CLI) | payer OTHER | END 2022-11-26 23:59 | disposition home or self-care (01) | LOC: LAB.WC 08:00 | PROVIDERS: ATTEND Obstetrics & Gynecology | DX: Z36.85 Encounter for antenatal screening for Streptococcus B (principal) | CPT/HCPCS: 87797 ==

== ENCOUNTER 2022-12-19 15:57 | Outpatient (CLI) | payer OTHER ==
--- NOTE | 2022-12-19 16:30 | PROVIDER PROGRESS NOTE ---
- HPI Chief Complaint: Labor Check Current : Vital Signs Temperature 98.2 F 12/19/22 16:09 Heart Rate 116 H 12/19/22 16:09 Respiratory Rate 16 12/19/22 16:09 Blood Pressure 137/87 H 12/19/22 16:09 Temperature 98.2 F 12/19/22 16:09 Heart Rate 116 H 12/19/22 16:09 Respiratory Rate 16 12/19/22 16:09 Blood Pressure 137/87 H 12/19/22 16:09 O2 Saturation If not protocol: Oxygen Flow, liters/minute - Procedures OB Procedure Performed: NST NST Procedure: NST Procedure Start Time 20:22 Stop Time 20:58 EFM: 150s, moderate variability, positive 15x15 accelerations, no decelerations [place]: q4m NST reactive/Cat 1 Service Date of procedure: 12/19/22 - Plan Plan: 27yo at 39.1w presenting with contractions, started few hours ago. Denies leaking fluid or vaginal bleeding. Good movement. VSS GEN: NAD CV: Tachycardic Resp: Breathing unlabored Abd: soft, nt Ext: nt SVE 2/50/-3 NST reactive 27yo at 39.1w, false labor - NST reactive - Labor precautions given - Follow up as scheduled
[2022-12-19 17:43] VITALS: BP 129/86
== END 2022-12-19 16:45 | disposition home or self-care (01) ==
LOC: WFO 15:57 → FBP 16:00 → WFO 16:45
PROVIDERS: ATTEND Obstetrics & Gynecology
DX: O47.1 False labor at or after 37 completed weeks of gestation (principal); Z3A.39 39 weeks gestation of pregnancy
CPT/HCPCS: 59025; 99213

== ENCOUNTER 2022-12-24 01:19 | Inpatient (IN) | payer OTHER ==
[2022-12-24 02:25] LABS: RUPTURE OF MEMBRANES PLUS NEGATIVE (NEGATIVE)
[2022-12-24] MEDS ORDERED: METHYLERGONOVINE 0.2 MG/ML VIAL IM PRN (02:27)
[2022-12-24] MEDS ORDERED: TRANEXAMIC ACID IN NACL 1,000 MG/100 ML BAG IV PRN (02:27)
[2022-12-24] MEDS ORDERED: fentaNYL 100 MCG/2 ML VIAL IVP PRN (02:27)
[2022-12-24] MEDS ORDERED: miSOPROStoL 200 MCG TABLET BC PRN (02:27)
[2022-12-24] MEDS ORDERED: LACTATED RINGERS 1,000 ML IV PRN (02:27)
[2022-12-24] MEDS ORDERED: lidocaine 1% 20 ML MDV ID PRN (02:27)
[2022-12-24] MEDS ORDERED: NIFEdipine 10 MG CAPSULE PO PRN (02:27)
[2022-12-24] MEDS ORDERED: TERBUTALINE 1 MG/ML VIAL SUBQ PRN (02:27)
[2022-12-24] MEDS ORDERED: LABETALOL 20 MG/4 ML SYRINGE IVP PRN ×3 (02:27)
[2022-12-24] MEDS ORDERED: miSOPROStoL 200 MCG TABLET PR PRN (02:27)
[2022-12-24] MEDS ORDERED: CARBOPROST TROMETHAMINE 250 MCG/ML AMP IM PRN (02:27)
[2022-12-24] MEDS ORDERED: hydrALAZINE INJ 20 MG/ML VIAL IVP PRN ×2 (02:27)
[2022-12-24] MEDS ORDERED: OXYTOCIN/SODIUM CHLORIDE 500 ML IV PRN (02:27)
[2022-12-24] MEDS ORDERED: OXYTOCIN 10 UNIT/ML VIAL IM PRN (02:27)
[2022-12-24 02:47] LABS: BASOPHILS # (AUTO) 0.1 10^3/uL (0.0-0.1); BASOPHILS % (AUTO) 0.3 %; EOSINOPHILS % (AUTO) 0.1 %; HCT - HEMATOCRIT 32.8 % (37.0-47.0); HGB - HEMOGLOBIN 10.3 g/dL (12.0-16.0); LYMPHOCYTES # (AUTO) 2.1 10^3/uL (1.5-3.5); LYMPHOCYTES % (AUTO) 14.6 %; MEAN CORPUSCULAR HEMOGLOBIN 26.8 pg (27.0-31.0); MEAN CORPUSCULAR HGB CONC 31.4 g/dL (32.0-36.0); MEAN CORPUSCULAR VOLUME 85.2 fL (81.0-99.0); MEAN PLATELET VOLUME 10.1 fL (7.9-10.8); MONOCYTES # (AUTO) 0.9 10^3/uL (0.0-1.0); NEUTROPHILS # (AUTO) 11.2 10^3/uL (1.5-6.6); NEUTROPHILS % (AUTO) 78.5 %; PLT - PLATELET COUNT 251 10^3/uL (130-450); RED BLOOD COUNT 3.85 10^6/uL (4.20-5.40); RED CELL DISTRIBUTION WIDTH 13.5 % (12.0-15.0); WHITE BLOOD COUNT 14.3 x10^3/uL (4.8-10.8)
--- NOTE | 2022-12-24 02:47 | HISTORY & PHYSICAL EXAMINATION ---
Admit History - Visit Reason Visit Reason: Contractions - : 3 Parity: 2 Care: positive: [facility] Risk/History: positive: None Complications This : positive: None Smoking Status: Former smoker - Mother's Labs Mother's Blood Type: positive: O Mother's RH: positive: Negative GBS: positive: Group B Step Negative Rubella Status: positive: Immune - HPI Vital Signs Temperature 99.5 F 12/24/22 01:37 Heart Rate 125 H 12/24/22 01:37 Respiratory Rate 18 12/24/22 01:37 Blood Pressure 121/82 H 12/24/22 01:37 O2 Saturation 100 12/24/22 01:37 Temperature 99.5 F 12/24/22 01:45 Heart Rate 121 H 12/24/22 01:45 Respiratory Rate 20 12/24/22 01:45 Blood Pressure 121/82 H 12/24/22 01:45 O2 Saturation 100 12/24/22 01:37 If not protocol: Oxygen Flow, liters/minute - NST Procedure NST Procedure Start Time 17:41 Stop Time 18:50 150s, moderate variability after going to bathroom possible deceleration, not tracing well 160s, moderate variability, no accels non-reactive, will continue to monitor - Results and Plan Findings/Impression: Patient is a G3, P2 at term who presented with possible leakage of fluid and contractions. Patient is james regularly. ROM plus is negative. 1. admit for labor 2. continuous monitoring 3. GBS negative Plan: pain management: pt would like epidural Meds/Allgy - Home Medications Home Medications: Ambulatory Orders Medication Instructions Recorded Confirmed Vit,Sixto 74/Iron/Folic 1 each PO DAILY 09/15/20 09/15/20 [ Low Iron Tablet] Ibuprofen [Motrin] 1 tablet PO Q8H PRN #30 tablet 11/12/20 - Allergies Allergies/Adverse Reactions: Allergies Allergy/AdvReac Type Severity Reaction Status Date / Time No Known Drug Allergies Allergy Verified 11/12/20 11:51 Physical - Abdominal Exam Vital Signs: Temp Pulse Resp BP Pulse Ox O2 Flow Rate 99.5 F 121 H 20 121/82 H 100 12/24/22 01:45 12/24/22 01:45 12/24/22 01:45 12/24/22 01:45 12/24/22 01:37 Plan for Labor - Plan For Labor I expect patient to be DC'd or transferred within 96 hours.: Yes
--- NOTE | 2022-12-24 03:12 | HISTORY & PHYSICAL EXAMINATION ---
Admit History - Visit Reason Visit Reason: Contractions - : 3 Parity: 2 Care: positive: [facility] Risk/History: positive: None Complications This : positive: None Smoking Status: Former smoker - Mother's Labs Mother's Blood Type: positive: O Mother's RH: positive: Negative GBS: positive: Group B Step Negative Rubella Status: positive: Immune - HPI Vital Signs Temperature 99.5 F 12/24/22 01:37 Heart Rate 125 H 12/24/22 01:37 Respiratory Rate 18 12/24/22 01:37 Blood Pressure 121/82 H 12/24/22 01:37 O2 Saturation 100 12/24/22 01:37 Temperature 99.5 F 12/24/22 01:45 Heart Rate 121 H 12/24/22 01:45 Respiratory Rate 20 12/24/22 01:45 Blood Pressure 121/82 H 12/24/22 01:45 O2 Saturation 100 12/24/22 01:37 If not protocol: Oxygen Flow, liters/minute - NST Procedure NST Procedure Start Time 17:41 Stop Time 18:50 Meds/Allgy - Home Medications Home Medications: Ambulatory Orders Medication Instructions Recorded Confirmed Vit,Sixto 74/Iron/Folic 1 each PO DAILY 09/15/20 09/15/20 [ Low Iron Tablet] Ibuprofen [Motrin] 1 tablet PO Q8H PRN #30 tablet 11/12/20 - Allergies Allergies/Adverse Reactions: Allergies Allergy/AdvReac Type Severity Reaction Status Date / Time No Known Drug Allergies Allergy Verified 11/12/20 11:51 Review of Systems - Cardiovascular Cariovascular: denies: Chest pain - Gastrointestinal Gastrointestinal: denies: Abdominal pain - All Other Systems All Other Systems: reports: Reviewed and negative Physical - Abdominal Exam Vital Signs: Temp Pulse Resp BP Pulse Ox O2 Flow Rate 99.5 F 121 H 20 121/82 H 100 12/24/22 01:45 12/24/22 01:45 12/24/22 01:45 12/24/22 01:45 12/24/22 01:37 Contraction Intensity: positive: Moderate - Monitoring Strip Review: positive: Category I - Presentation Presentation: positive: Vertex - Vaginal Exam Membranes: positive: Membranes intact Dilation (in cm): 2 Plan for Labor - Plan For Labor I expect patient to be DC'd or transferred within 96 hours.: Yes
[2022-12-24] MEDS ORDERED: ROPIVACAINE 0.2% 200 MG/100 ML BAG EP ONE (03:19)
[2022-12-24] MEDS ORDERED: PHENYLEPHRINE 10 MG/ML VIAL ONE (03:53)
--- NOTE | 2022-12-24 03:58 | ANESTHESIA ---
Pre-Anesthesia VS, & Labs - Diagnosis Active labor - Procedure vaginal delivery Vital Signs: Temp Pulse Resp BP Pulse Ox O2 Flow Rate 37.4 C 121 H 18 125/71 100 12/24/22 03:06 12/24/22 03:06 12/24/22 03:06 12/24/22 03:06 12/24/22 01:37 Height: 5 ft 2 in Weight (kg): 78.925 kg Body Mass Index: 31.8 BMI Classification: Obese - NPO Last Fluid Intake: clear liquids during labo - Is Patient ?: Yes - Lab Results Current Lab Results: Laboratory Tests 12/24/22 02:30: WBC 14.3 H, RBC 3.85 L, Hgb 10.3 L, Hct 32.8 L, MCV 85.2, MCH 26.8 L, MCHC 31.4 L, RDW 13.5, Plt Count 251, MPV 10.1, Neut # (Auto) 11.2 H, Lymph # (Auto) 2.1, [place] # (Auto) 0.9, Eos # (Auto) 0.0, Baso # (Auto) 0.1, Absolute Nucleated RBC 0.00, Nucleated RBC % 0.0 12/24/22 02:30: Blood Type O NEGATIVE, Antibody Screen NEGATIVE Lab results reviewed: Yes Fish Bones: 12/24/22 02:30 Home Medications and Allergies Active Medications Carboprost Tromethamine (Carboprost Tromethamine 250 Mcg/Ml Amp) 250 mcg IM . ONCE PRN PRN Reason: Hemorrhage Fentanyl (Fentanyl 100 Mcg/2 Ml Vial) 50 mcg IVP Q1H PRN PRN Reason: Severe Pain (score 7-10) Hydralazine HCl (Hydralazine Inj 20 Mg/Ml Vial) 5 - 10 mg IVP Q20M PRN; Protocol PRN Reason: SBP> or= 160 OR DBP> or= 110 Hydralazine HCl (Hydralazine Inj 20 Mg/Ml Vial) 10 mg IVP .ONCE PRN; Protocol PRN Reason: SBP> or= 160 OR DBP> or= 110 Lactated Ringer's (Lr) 500 mls @ 999 mls/hr IV PRN PRN PRN Reason: intolerance to labor Last Admin: 12/24/22 02:30 Dose: 999 mls/hr Oxytocin/Sodium Chloride (Pitocin/Sodium Chloride) 500 mls @ 999 mls/hr IV PRN PRN; Protocol PRN Reason: POST- HEMORR PREVENTION Tranexamic Acid (Tranexamic 1,000 Mg/100ml-Nacl) 1,000 mg in 100 mls @ 600 mls/hr IV Q30M PRN PRN Reason: EBL >1200mL and within 3hr Lactated Ringer's (Lr) 1,000 mls @ 125 mls/hr IV .Q8H DEANNA Labetalol HCl (Labetalol 20 Mg/4 Ml Syringe) 20 - 80 mg IVP Q10M PRN; Protocol PRN Reason: SBP> or= 160 OR DBP> or= 110 Labetalol HCl (Labetalol 20 Mg/4 Ml Syringe) 20 mg IVP .ONCE PRN; Protocol PRN Reason: SBP> or= 160 OR DBP> or= 110 Labetalol HCl (Labetalol 20 Mg/4 Ml Syringe) 20 - 40 mg IVP Q10M PRN; Protocol PRN Reason: SBP> or= 160 OR DBP> or= 110 Lidocaine HCl (Lidocaine 1% 20 Ml Mdv) 20 ml ID .ONCE PRN PRN Reason: PERINEAL REPAIR Stop: 12/27/22 02:27 Methylergonovine Maleate (Methylergonovine 0.2 Mg/Ml Vial) 0.2 mg IM .ONCE PRN PRN Reason: Hemorrhage Misoprostol (Misoprostol 200 Mcg Tablet) 600 mcg BC .ONCE PRN PRN Reason: Hemorrhage Misoprostol (Misoprostol 200 Mcg Tablet) 800 mcg FL .ONCE PRN PRN Reason: Hemorrhage Nifedipine (Nifedipine 10 Mg Capsule) 10 - 20 mg PO Q20M PRN; Protocol PRN Reason: SBP> or= 160 OR DBP> or= 110 Oxytocin (Oxytocin 10 Unit/Ml Vial) 10 unit IM .ONCE PRN PRN Reason: Step One if no IV access. Sodium Chloride (Sodium Chloride Flush 0.9% 10 Ml Syringe) 10 ml IVP PRN PRN PRN Reason: NEEDED PER PROVIDER ORDERS Terbutaline Sulfate (Terbutaline 1 Mg/Ml Vial) 0.25 mg SUBQ .ONCE PRN PRN Reason: Tachystole Vit,Sixto 74/Iron/Folic [ Low Iron Tablet] 1 each PO DAILY 09/15/20 Allergies/Adverse Reactions: Allergies Allergy/AdvReac Type Severity Reaction Status Date / Time No Known Drug Allergies Allergy Verified 11/12/20 11:51 Anes History & Medical History - Anesthetic History Anesthesia Complications: reports: No previous complications - Medical History Cardiovascular: reports: None Pulmonary: reports: None Gastrointestinal: reports: None Urinary: reports: None Neuro: reports: None Musculoskeletal: reports: None Endocrine/Autoimmune: reports: None Blood Disorders: reports: None Skin: reports: None Smoking Status: Former smoker Psychosocial: reports: No issues indicated History of Cancer?: No - Surgical History Eyes Ears Nose Throat (EENT): reports: Tonsil/Adenoidectomy - Obstetrical History : 3 Parity: 2 Events: reports: None Complications: reports: None Exam General: Alert, Oriented x3, Cooperative, No acute distress Dental: WNL Mouth Openin Fingerbreadth Neck Mobility: Normal Mallampati classification: II Thyromental Distance: 4-6 cm Mental/Cognitive Status: Alert/Oriented X3, Normal for patient Plan Anesthesia Type: Epidural Consent for Procedure(s) Verified and Reviewed: Yes Code Status: Attempt Resuscitation ASA classification: 2-Mild systemic disease Is this case an emergency?: No
[2022-12-24] MEDS: LACTATED RINGERS 1,000 ML IV SCH ×3 (04:00→21:15)
[2022-12-24] MEDS ORDERED: ROPIVACAINE 0.2% 200 MG/100 ML BAG EP PRN (04:03)
[2022-12-24] MEDS ORDERED: NALOXONE 0.4 MG/ML VIAL IVP PRN (04:03)
[2022-12-24] MEDS ORDERED: ePHEDrine 50 MG/ML VIAL IVP PRN (04:03)
--- NOTE | 2022-12-24 04:32 | PROVIDER PROGRESS NOTE ---
Labor Progress Note - Uterine Monitoring Uterine Monitoring Mode: positive: External toco Contraction Frequency (min/apart): 4 Contraction Intensity: positive: Moderate to strong - Monitoring Heart Rate Variability: positive: Moderate (6-25 bmp) Decelerations: positive: None - Vaginal Exam Dilation (in cm): 4 Effacement (%): 60 Cervical Position: Midposition - Labor Progress Note Labor Progress Note/Additional Text: Patient comfortable with epidural. tachycardia has resolved with IV fluid bolus. Maternal COVID swab is negative. Maternal temperature has been running 99 degrees. AROM with clear fluid.
--- NOTE | 2022-12-24 06:23 | DELIVERY NOTE ---
Delivery Note - Labor Labor: positive: Spontaneous, Augmented by ARM - Infant Delivery Method Delivery Method: positive: Spontaneous vaginal delivery - Presentation Presentation: positive: Vertex - Nuchal Cord Nuchal Cord: positive: None - Anesthetic Anesthetic Type: - Amniotic Fluid Description Amniotic Fluid Description: positive: Clear - Episiotomy Type Episiotomy Type: positive: None - Laceration Laceration: positive: None - Delivery Outcome Delivery Outcome: positive: Livebirth - : positive: Placed in direct skin contact with mother, [place] used sex: positive: Female - Cord Cord: positive: 3 vessels - Placenta Placenta: positive: Intact, Spontaneous - Estimated Blood Loss Estimated Blood Loss (in cc): 150 - Post Delivery Events Post Delivery Events: positive: No post delivery events - Delivery Comments (Free Text/Narrative) Delivery Comments (Free Text/Narrative): Stage I: Patient is a who presented in labor. AROM with clear fluid. FHTs remained reassuring throughout the first stage. Patient received an epidural for anesthesia. Stage II: Female was atraumatcally delivered from DONAVAN position. There was no nuchal cord. The anterior shoulder was delivered without difficulty followed by the posterior shoulder and body. Infant was vigorous at delivery. Infant was placed on mom. After 1 minute of delayed cord clamping the cord was doubly clamped and cut. Weight and APGARS pending Stage III: Gentle cord traction. Placenta delivered spontaneously, intact 3 vessel cord. Course: Uterine tone was firm with massage after delivery of the placenta. Oxytocin was administered IV. Perineum was intact Hemostasis was excellent. EBL 150 mL. Sponge, instruments, and needle counts were correct at the end of the procedure.
[2022-12-24] MEDS ORDERED: SIMETHICONE CHEW 80 MG TABLET PO PRN (06:24)
[2022-12-24] MEDS ORDERED: DOCUSATE SODIUM 100 MG CAPSULE PO PRN (06:24)
[2022-12-24] MEDS ORDERED: LACTATED RINGERS 1,000 ML IV SCH (07:00)
[2022-12-24] MEDS: ACETAMINOPHEN 500 MG TABLET PO SCH ×2 (08:10→16:32)
[2022-12-24] MEDS: IBUPROFEN 600 MG TABLET PO SCH ×2 (08:10→16:35)
[2022-12-24 08:30] LABS: B. PARAPERTUSSIS- RESP PCR PAN NOT DETECTED; B. PERTUSSIS- RESP PCR PANEL NOT DETECTED; C. PNEUMONIAE- RESP PCR PANEL NOT DETECTED; CORONAVIRUS 229E-RESP PCR NOT DETECTED; CORONAVIRUS HKU1-RESP PCR NOT DETECTED; CORONAVIRUS NL63-RESP PCR NOT DETECTED; CORONAVIRUS OC43-RESP PCR NOT DETECTED; HUMAN METAPNEUMOVIRUS NOT DETECTED; INFLUENZA A- RESP PCR PANEL NOT DETECTED; INFLUENZA B - RESP PCR PANEL NOT DETECTED; M. PNEUMONIAE- RESP PCR PANEL NOT DETECTED; PARAINFLUENZA VIRUS 1 NOT DETECTED; PARAINFLUENZA VIRUS 2 NOT DETECTED; PARAINFLUENZA VIRUS 3 NOT DETECTED; PARAINFLUENZA VIRUS 4 NOT DETECTED; RHINOVIRUS/ENTEROVIRUS NOT DETECTED; RSV- RESP PCR PANEL NOT DETECTED; SARS-CoV-2 -RESP PCR PANEL NOT DETECTED
--- NOTE | 2022-12-24 10:06 | PROVIDER PROGRESS NOTE ---
Subjective - Prog Note Date Prog Note Date: 12/24/22 Prog Note Time: 10:04 - Subjective Subjective: Patient states she feels well denies chest pain or shortness of breath. Denies abdominal pain. Denies lower extremity pain or swelling. Objective - Vital Signs/Intake & Output Reviewed Vital Signs: Yes Vital Signs: Vital Signs x48h Temp Pulse Pulse Resp BP BP 12/24/22 09:20 102.5 F H 126 H 125/65 12/24/22 03:06 99.3 F 121 H 18 125/71 Intake & Output: Intake & Output 12/21/22 12/22/22 12/23/22 12/24/22 23:59 23:59 23:59 23:59 Intake Total 1000 Balance 1000 - Objective General Appearance: positive: No acute distress Eyes Bilateral: positive: Normal inspection Respiratory: positive: Breath sounds nml Cardiovascular: positive: Tachycardia Abdomen: positive: Non-tender Skin: positive: Color nml Extremities: positive: Non-tender, No pedal edema - Lab Results Fish Bones: 12/24/22 02:30 Other Labs: Lab Results x24hrs 12/24/22 12/24/22 12/24/22 Range/Units 03:17 03:17 02:30 WBC 14.3 H (4.8-10.8) x10^3/uL RBC 3.85 L (4.20-5.40) 10^6/uL Hgb 10.3 L (12.0-16.0) g/dL Hct 32.8 L (37.0-47.0) % MCV 85.2 (81.0-99.0) fL MCH 26.8 L (27.0-31.0) pg MCHC 31.4 L (32.0-36.0) g/dL RDW 13.5 (12.0-15.0) % Plt Count 251 (130-450) 10^3/uL MPV 10.1 (7.9-10.8) fL Neut # (Auto) 11.2 H (1.5-6.6) 10^3/uL Lymph # (Auto) 2.1 (1.5-3.5) 10^3/uL Terrell # (Auto) 0.9 (0.0-1.0) 10^3/uL Eos # (Auto) 0.0 (0.0-0.7) 10^3/uL Baso # (Auto) 0.1 (0.0-0.1) 10^3/uL Absolute Nucleated RBC 0.00 x10^3/uL Nucleated RBC % 0.0 /100WBC Membranes Rupture (NEGATIVE) Nasal Adenovirus (PCR) NOT DETECTED Nasal B. parapertussis DNA (PCR) NOT DETECTED Nasal Coronavir 229E PCR NOT DETECTED Nasal Coronavir HKU1 PCR NOT DETECTED Nasal Coronavir NL63 PCR NOT DETECTED Nasal Coronavir OC43 PCR NOT DETECTED Nasal Enterovir/Rhinovir PCR NOT DETECTED Nasal Influenza B PCR NOT DETECTED Nasal Influenza A PCR NOT DETECTED Nasal Parainfluen 1 PCR NOT DETECTED Nasal Parainfluen 2 PCR NOT DETECTED Nasal Parainfluen 3 PCR NOT DETECTED Nasal Parainfluen 4 PCR NOT DETECTED Nasal RSV (PCR) NOT DETECTED Nasal B.pertussis DNA PCR NOT DETECTED Nasal C.pneumoniae (PCR) NOT DETECTED Bhaskar Human Metapneumo PCR NOT DETECTED Nasal M.pneumoniae (PCR) NOT DETECTED Nasal SARS-CoV-2 (PCR) NOT DETECTED SARS-CoV-2 (PCR) NOT DETECTED Blood Type Antibody Screen 12/24/22 12/24/22 Range/Units 02:30 01:52 WBC (4.8-10.8) x10^3/uL RBC (4.20-5.40) 10^6/uL Hgb (12.0-16.0) g/dL Hct (37.0-47.0) % MCV (81.0-99.0) fL MCH (27.0-31.0) pg MCHC (32.0-36.0) g/dL RDW (12.0-15.0) % Plt Count (130-450) 10^3/uL MPV (7.9-10.8) fL Neut # (Auto) (1.5-6.6) 10^3/uL Lymph # (Auto) (1.5-3.5) 10^3/uL Terrell # (Auto) (0.0-1.0) 10^3/uL Eos # (Auto) (0.0-0.7) 10^3/uL Baso # (Auto) (0.0-0.1) 10^3/uL Absolute Nucleated RBC x10^3/uL Nucleated RBC % /100WBC Membranes Rupture NEGATIVE (NEGATIVE) Nasal Adenovirus (PCR) Nasal B. parapertussis DNA (PCR) Nasal Coronavir 229E PCR Nasal Coronavir HKU1 PCR Nasal Coronavir NL63 PCR Nasal Coronavir OC43 PCR Nasal Enterovir/Rhinovir PCR Nasal Influenza B PCR Nasal Influenza A PCR Nasal Parainfluen 1 PCR Nasal Parainfluen 2 PCR Nasal Parainfluen 3 PCR Nasal Parainfluen 4 PCR Nasal RSV (PCR) Nasal B.pertussis DNA PCR Nasal C.pneumoniae (PCR) Bhaskar Human Metapneumo PCR Nasal M.pneumoniae (PCR) Nasal SARS-CoV-2 (PCR) SARS-CoV-2 (PCR) Blood Type O NEGATIVE Antibody Screen NEGATIVE Assessment/Plan - Problem List (1) Vaginal delivery Impression: 1. and maternal tachycardia after presentation in labor. Patient did not become febrile until after delivery. There is no uterine tenderness, Purulent or foul-smelling vaginal discharge, and patient only had rupture of membranes for a few hours. Physical exam is unremarkable and patient feels well. Respiratory panel is negative. We will treat For chorioamnionitis.
[2022-12-24 10:08] LABS: RAPID STREP SCREEN Negative (Negative)
[2022-12-24 10:34] LABS: BILIRUBIN,URINE NEGATIVE (NEGATIVE); GLUCOSE, URINE (UA) NEGATIVE (NEGATIVE); KETONES,URINE (UA) NEGATIVE (NEGATIVE); LEUKOCYTE ESTERASE, URINE NEGATIVE (NEGATIVE); NITRITE,URINE NEGATIVE (NEGATIVE); OCCULT BLOOD,URINE TRACE-INTA (NEGATIVE); PH,URINE 7.5 PH (5.0-7.5); PROTEIN,URINE 100 mg/dL (NEGATIVE); UROBILINOGEN,URINE 0.2 (NORMAL) E.U./dL (NORMAL)
[2022-12-24 10:35] LABS: CLARITY,URINE CLEAR (CLEAR)
[2022-12-24 10:45] LABS: BACTERIA,URINE Few /HPF (None Seen); RBC,URINE 0-5 /HPF (0-5); SQUAMOUS EPITHELIAL CELL,UR FEW Squamous (<= Few); WBC,URINE 0-3 /HPF (0-5)
[2022-12-24] MEDS ORDERED: GENTAMICIN IV SCH (11:00)
[2022-12-24] MEDS ORDERED: SODIUM CHLORIDE 0.9% IV SCH (11:00)
[2022-12-24] MEDS: AMPICILLIN 2 GM in SODIUM CHLORIDE 0.9% MINIBAG 100 ML IV SCH ×2 (11:35→21:21)
[2022-12-24] MEDS: GENTAMICIN IV SCH (12:42)
[2022-12-24] MEDS: SODIUM CHLORIDE 0.9% IV SCH (12:42)
[2022-12-24] MEDS: CLINDAMYCIN 900 MG/50 ML 900 MG/50 ML BAG IV SCH (16:12)
[2022-12-25] MEDS: CLINDAMYCIN 900 MG/50 ML 900 MG/50 ML BAG IV SCH ×3 (00:10→15:55)
[2022-12-25] MEDS: ACETAMINOPHEN 500 MG TABLET PO SCH ×3 (00:13→17:39)
[2022-12-25] MEDS: IBUPROFEN 600 MG TABLET PO SCH ×6 (00:13→23:45)
[2022-12-25] MEDS: AMPICILLIN 2 GM in SODIUM CHLORIDE 0.9% MINIBAG 100 ML IV SCH ×5 (00:14→23:44)
[2022-12-25] MEDS: LACTATED RINGERS 1,000 ML IV SCH ×2 (04:36→19:19)
[2022-12-25] MEDS: SODIUM CHLORIDE FLUSH 0.9% 10 ML SYRINGE IVP PRN (07:51)
--- NOTE | 2022-12-25 10:59 | PROVIDER PROGRESS NOTE ---
Subjective - Prog Note Date Prog Note Date: 12/25/22 Prog Note Time: 10:57 - Subjective Subjective: Patient is day 1 status postnormal spontaneous vaginal delivery. Patient is doing well this morning. She is ambulating, tolerating regular diet, spontaneously voiding. Lochia is less than menses. She denies chest pain or shortness of breath. Objective - Vital Signs/Intake & Output Reviewed Vital Signs: Yes Vital Signs: Vital Signs x48h Temp Pulse Resp BP BP Pulse Ox 12/25/22 09:00 97.6 F L 90 17 105/66 100 12/25/22 06:11 97.2 F L 91 16 97/63 Intake & Output: Intake & Output 12/22/22 12/23/22 12/24/22 12/25/22 23:59 23:59 23:59 23:59 Intake Total 3356.25 370 Output Total 975 Balance 2381.25 370 - Objective General Appearance: positive: No acute distress Respiratory: positive: Breath sounds nml Cardiovascular: positive: Regular rate & rhythm Abdomen: positive: Non-tender (Firm fundus below the umbilicus) Extremities: positive: Non-tender, No pedal edema - Lab Results Fish Bones: 12/24/22 02:30 Other Labs: Lab Results x24hrs 12/24/22 12/24/22 Range/Units 11:09 11:05 Lactic Acid 1.4 (0.5-2.2) mmol/L Procalcitonin Immunoas 0.12 (<0.5) ng/mL Assessment/Plan - Problem List (2) endometritis Impression: Broad-spectrum antibiotics, amp bacillin, gentamicin, and clindamycin. Maximum temperature is 102.5. Discussed we will continue IV antibiotics until tomorrow morning.
[2022-12-25] MEDS: SODIUM CHLORIDE 0.9% IV SCH (12:00)
[2022-12-25] MEDS: GENTAMICIN IV SCH (12:00)
[2022-12-26] MEDS: CLINDAMYCIN 900 MG/50 ML 900 MG/50 ML BAG IV SCH (01:02)
[2022-12-26] MEDS: SODIUM CHLORIDE FLUSH 0.9% 10 ML SYRINGE IVP PRN (01:09)
[2022-12-26] MEDS: ACETAMINOPHEN 500 MG TABLET PO SCH ×2 (01:52→09:55)
[2022-12-26 05:26] VITALS: O2SAT 98
[2022-12-26] MEDS: IBUPROFEN 600 MG TABLET PO SCH (05:38)
[2022-12-26] MEDS: AMPICILLIN 2 GM in SODIUM CHLORIDE 0.9% MINIBAG 100 ML IV SCH (05:39)
[2022-12-26] MEDS: LACTATED RINGERS 1,000 ML IV SCH (05:39)
[2022-12-26 09:52] VITALS: BP 115/79
--- NOTE | 2022-12-26 10:30 | DISCHARGE SUMMARY ---
"Discharge Summary Admit Date: 12/24/22 Discharge Date: 12/26/22 Discharging Provider: guero Primary Care Provider: guero Code Status: Attempt Resuscitation Condition at Discharge: Good Discharge Disposition: 01 Home, Self Care - DIAGNOSES Admission Diagnoses: labor IUP @ term Discharge Diagnoses with Status of Each Condition: labor - resolved post formula feeding endometritis - resolved - HPI History of Present Illness: pt presented for r/o ROM was not ruptured was in labor maternal tachycardia as well admitted epidural for labor pain management without complication did spike fever >102' post x1 treated with 48h IV abx tachycardia also resolved no further fevers discharged home with precautions - CONSULTS | PROCEDURES Procedures: epidural labor IV abx care - HOSPITAL COURSE Hospital Course: pt presented for r/o ROM was not ruptured was in labor maternal tachycardia as well admitted epidural for labor pain management without complication did spike fever >102' post x1 treated with 48h IV abx tachycardia also resolved no further fevers discharged home with precautions - ALLERGIES Allergies/Adverse Reactions: Allergies Allergy/AdvReac Type Severity Reaction Status Date / Time No Known Drug Allergies Allergy Verified 11/12/20 11:51 - MEDICATIONS Home Medications: Ambulatory Orders Medication Instructions Recorded Confirmed Vit,Sixto 74/Iron/Folic 1 each PO DAILY 09/15/20 09/15/20 [ Low Iron Tablet] Ibuprofen [Motrin] 1 tablet PO Q8H PRN #30 tablet 11/12/20 - PHYSICAL EXAM AT DISCHARGE General Appearance: positive: No acute distress Eyes Bilateral: positive: Normal inspection ENT: positive: ENT inspection nml Respiratory: positive: Chest non-tender, No respiratory distress Cardiovascular: positive: Regular rate & rhythm, No murmur, No gallop Abdomen: positive: Non-tender, Other (uterus 1 below umb) Back: positive: Nml inspection Skin: positive: Color nml Extremities: positive: Non-tender Neurologic/Psychiatric: positive: Oriented x3 - LABS Result Diagrams: 12/24/22 02:30 - QUALITY (Female Hip Fx Only) Was patient sent home on osteoporosis medication?: No - FOLLOW UP Follow Up: 1 week for mom in clinic baby per peds - TIME SPENT Time Spent in Discharge (Minutes): 30"
--- NOTE | 2022-12-26 10:59 | Discharge Plan ---
Discharge Plan Problem Reviewed?: Yes Disposition: Home, Self Care Condition: Good Diet: Regular Activity Restrictions: No Restrictions Shower Restrictions: No Driving Restrictions: No Weight Bearing: Full Weight Instruction Topics: Vaginal After Plan of Treatment: routine care Assessment: healthy formula feeding doing well all milestones met infection resolved No Smoking: If you smoke, Please STOP! Call for help. Follow-up with: Trey Barfield MD [Provider Admit Priv/Credential] -
--- NOTE | 2022-12-26 13:15 | Labor Flowsheet ---
Labor Flowsheet Datetime Report Generated by CPN: 12/26/2022 13:15 Datetime: 12/26/2022 09:50 VITAL SIGNS NBP Sys/Lilli/Mean (mmHg): 115 : 79 : 86 Pulse: 78 Datetime: 12/24/2022 10:00 PAIN Pain Scale: 3 Datetime: 12/24/2022 08:00 SpO2 (%): 100 Temperature (C): 37.8 Datetime: 12/24/2022 07:16 Respirations: 20 Pain Location: Abdomen Datetime: 12/24/2022 07:15 Stage of : Recovery Datetime: 12/24/2022 06:15 Stage 2 Comments: Placenta spont delivered; pitocin bolus infusing Datetime: 12/24/2022 06:10 UTERINE ACTIVITY Monitor Mode: External Monitor Interventions for UA: [place] Adjusted Frequency (min): 1.5-2 Quality: Strong Duration (sec): 60-110 Pattern: Normal: <= 5 Contractions in 10 Minutes Resting Tone (Palpate): Relaxed ASSESSMENT A Monitor Mode: Telemetry FHR Baseline Rate : 155 Variability: Moderate 6-25 bpm Accelerations: 15X15 Decelerations: Variable Category: Category II Pushing Position: Pushing with Contractions Pushing Progress: Descent with Pushing; Perineal Bulging; Presenting Part Visible; Pushing Effectiv lisy with Contractions LaborFlag: Labor Datetime: 12/24/2022 06:06 STAGE 2 Pushing: Coached on Pushing; Urge to Push Datetime: 12/24/2022 06:02 PROCEDURE TIME OUT Procedure Type: Dr Baltes here; will begin to push. Datetime: 12/24/2022 06:00 I/O Interventions: Crockett Discontinued (Annotations: 100ml urine in crockett bag) Datetime: 12/24/2022 05:58 VAGINAL EXAM Dilatation (cm): 10.0 Effacement (%): 100 Station: 1 Exam by: RNC Spear Datetime: 12/24/2022 05:50 Patient Position/Activity: RN at bedside; pt c/o some vaginal pressure; will check cervical/labor p rogress due to discontinuous FHR tracing on ext US and intermittent primo decels to 100-120s from 150 B L Datetime: 12/24/2022 05:35 Pain Presence: None/Denies Pain Type: N/A Datetime: 12/24/2022 05:30 Actions for Decelerations: Side to Side Datetime: 12/24/2022 05:15 FHR Baseline Changes: Tachycardia Datetime: 12/24/2022 05:00 ANESTHESIA Anesthesia Plans: Epidural Datetime: 12/24/2022 04:30 Pain Relief Measures: Epidural Given Pain Coping: Talking Through Contractions Anesthesia Level Check: T6- Xyphoid Datetime: 12/24/2022 04:28 Membrane Status: Ruptured Membranes Rupture Method: Artificial Amniotic Fluid Color: Clear Amniotic Fluid Amount: Moderate Amniotic Fluid Odor: Normal Vaginal Bleeding: Normal Show Cervix, Consistency: Soft Cervix, Position: Midposition Membrane Comments: Dr Dominguez Procedures: Sterile Vag Exam Comfort Measures: Coaching Provider Reviewed Strip: Yes Strip Reviewed by: Dr Dominguez here for SVE, AROM done, clear fluid; SVE: 4/60/-2 Datetime: 12/24/2022 04:25 Temperature Route: Oral Datetime: 12/24/2022 04:10 COMMUNICATION Communication: Provider at Bedside Provider Notified (Name): [employer] Jose - third dose of phenylephrine 100mcg SIVP given. Datetime: 12/24/2022 04:00 MEDICATIONS Medication Comments: See [employer] notations for doses of Phenylephrine 100mcg x 3 doses for maternal hy potension following epidural loading dose. Datetime: 12/24/2022 03:42 PATIENT CARE IV/Blood Work: IV Bolus Started Datetime: 12/24/2022 03:40 Pain Goal: 4 Datetime: 12/24/2022 03:33 Epidural Procedure: Loading Dose Anesthesia Comments: half of loading dose Datetime: 12/24/2022 03:18 Procedure Verify: Correct Patient Identity; Correct Side and Site are Marked; Accurate Procedure Co nsent Form; Agreement on Procedure to be Done; Correct Patient Position Epidural Positioning: Sitting Datetime: 12/24/2022 03:10 Consults: Anesthesia Patient Care Comments: [employer] Jose here to place epidural for pt's pain mgmt Datetime: 12/24/2022 02:49 Notification Reason: Labor Status; Pain; Patient Request Datetime: 12/24/2022 02:25 Communication Comments: FHR decel x 5 min following FHR accels and pt's trip up to the bathroom. Datetime: 12/24/2022 02:16 MATERNAL ASSESSMENT Level of Consciousness: Alert DTR's/Clonus: DTRs 2+; No Clonus Headache: Denies Breath Sounds, Left: Clear and Equal Breath Sounds, Right: Clear and Equal Nausea/Vomiting: Denies RUQ Epigastric Pain: Denies Datetime: 12/24/2022 02:00 TEACHING Instructional Method: Verbal; Patient Instructed; Family/Support Person Instructed; Verbalized Unde rstanding Plan of Care: Plan of Care Discussed; Vaginal Delivery; Labor; Induction Unit Routine: Marcell to Room; Call German; Bed; Visiting Policy; Waiting Areas; Security; Phon e/Cell Phone Use; Unit Personnel; Monitoring; IV Pumps; Safety/Fall Risk Prevention; Diet/Nutri tion Services; Bathroom Privileges; Medications Datetime: 12/24/2022 01:40 Vibroacoustic Stim: Datetime: 12/23/2022 18:11 Membranes Ruptured Date/Time: 12/24/2022 04:28 Datetime: 12/20/2022 16:15 Contraction Comments: With uterine irritabiilty noted
== END 2022-12-26 13:14 | disposition home or self-care (01) | DRG 805 ==
LOC: WFO 01:19 → FBP 01:22 → WFO 02:24 → FBP 02:25
PROVIDERS: ADMIT Obstetrics & Gynecology Obstetrics; ATTEND Obstetrics & Gynecology
PROC: 10E0XZZ Delivery of Products of Conception, External Approach (ICD-10-PCS; principal; 2022-12-24)
PROC: 10907ZC Drainage of Amniotic Fluid, Therapeutic from Products of Conception, Via Natural or Artificial Opening (ICD-10-PCS; 2022-12-24)
DX: O99.892 Other specified diseases and conditions complicating childbirth (principal); O41.1230 Chorioamnionitis, third trimester, not applicable or unspecified; Z37.0 Single live birth; R00.0 Tachycardia, unspecified; Z3A.39 39 weeks gestation of pregnancy; Z87.891 Personal history of nicotine dependence; O76 Abnormality in fetal heart rate and rhythm complicating labor and delivery; Z20.822 Contact with and (suspected) exposure to COVID-19
CPT/HCPCS: 36415; 81001; 83605; 84112; 84145; 85025; 86850; 86900; 86901; 87040; 87070; 87430; 87633; 87635; 99215; A9270; J7120; 87086